=== PATIENT | female | born 1985 | race Caucasian/White ===

== ENCOUNTER 2018-02-11 08:15 | Outpatient (RCR) | payer OTHER, MEDICAID, SELFPAY ==
--- NOTE | 2018-02-01 15:08 | PT.OIE ---
Current Diagnoses Carpal tunnel syndrome, right upper limb (01/31/18) Muscle weakness (generalized) (01/31/18) Past Medical History (Last Reviewed 12/17/17 @ 12:31 by Yolanda Ellis DO) Anxiety (Chronic) Back pain (Chronic) GERD (gastroesophageal reflux disease) (Chronic) PCOS (polycystic ovarian syndrome) (Chronic) Scoliosis (Chronic) Past Surgical History (Last Reviewed 12/17/17 @ 12:31 by Yolanda Ellis DO) History of tonsillectomy Provider Visit Care Team Role Provider Type Yolanda Ellis DO Attending Provider Physician Family Provider Primary Care Provider Specialty: Family Practice Address: [address] [place] [address] Email: [email or web address] Physical Therapy Initial Evaluation PT-OP-A Visit Information Start: 01/31/18 12:47 Freq: Status: Active Protocol: Document 01/31/18 12:49 LRN (Rec: 01/31/18 14:09 LRN [id number]) Out-Patient Physical Therapy Visit Information Visit Information Visit Type Initial Evaluation Visit Note 1 Eval/0 of 23 visits Visit Start Time 12:49 Visit Stop Time 13:38 Total Visit Minutes 49 Visit Number 1 Eval Number of STONE POLISHER Visits 0 Evaluation Information Evaluation Date 01/31/18 PT-OP-B Current Condition Start: 01/31/18 12:47 Freq: Status: Active Protocol: Document 01/31/18 12:49 LRN (Rec: 01/31/18 14:09 LRN [id number]) Current Condition History of Current Condition Onset Date October 28, 2017 Current Complaints Daily, constant ache in R forearm, volar wrist and hand. Limited function History of Current Condition Pt reports slow onset waking up with worsening of R wrist numbness/tingling, sharp shooting pain into the thumb/ hand/wrist/proximal forearm, R arm stiffness and achy soreness since driving for 2 days to [place] and back. 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 She has difficulty with writing, picking up heavy objects, stretching into wrist extension and sometimes with opening out her hand. Prior Treatments and Tests Purchased [id number] short wrist brace. Future Testing and Treatments Planned None Treatment Goals Patient/Caregiver Goals Pt goal is to not get surgery. She would like to be able to continue working and to not have increased pain with waking in the morning. Prior Functional Status Baseline Function- ADL's Independent Baseline Function- Mobility Independent Current Functional Impairments (Reported) Functional Limitations- ADL's Can't open jars/bottle caps, sometimes can't lift heavy objects, Functional Limitations- Work/School Wears brace to work. 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 PT-OP-C Subjective Start: 01/31/18 12:47 Freq: Status: Active Protocol: Document 01/31/18 12:49 LRN (Rec: 01/31/18 14:09 LRN [id number]) Patient Questionnaires Quick Dash- Upper Extremity Quick Dash UE Score 14.09 Quick Dash UE Impairment 1 to 19% Impaired (Score 1-19) OP-PT Pain Assessment Pain Assessment Grid Paper Pain Assessment Grid Completed Yes Location R arm Pain Location Details Forearm, center of wrist, and hand. Intensity 3 Description Aching Description- Other Feels swollen Frequency Constant Home Pain Medication Use Patient Goal Sometimes uses aleve for back pain. PT-OP-H Neuro Start: 01/31/18 12:47 Freq: Status: Active Protocol: Document 01/31/18 12:49 LRN (Rec: 01/31/18 14:09 LRN [id number]) Sensation Evaluation Comments Summary Comments R middle, tip of finger numbness. Deep Tendon Reflex & Clonus Assessment Deep Tendon Reflex Bilateral Biceps, Triceps, Brachioradialis Deep Tendon Reflex 2+ Normal PT-OP-J Posture/Palpation/Skin Start: 01/31/18 12:47 Freq: Status: Active Protocol: Document 01/31/18 12:49 LRN (Rec: 01/31/18 14:09 LRN [id number]) Posture Evaluation Position Standing Evaluation View Posterior Head/C-Spine Posture Neutral Position Forward Head T-Spine Posture Fixed Scoliosis on (L) L-Spine Posture Flexible Scoliosis on (R) Palpation Assessment Location R arm Palpation Location Hand, wrist, forearm Palpation Findings Soft Tissue Tightness PT-OP-K Range of Motion Start: 01/31/18 12:47 Freq: Status: Active Protocol: Document 01/31/18 12:49 LRN (Rec: 01/31/18 14:09 LRN [id number]) Wrist Goniometric Range of Motion Wrist Measured in Degrees Left Flexion Active (degrees) 73 Extension Active (degrees) 75 Extension Passive (degrees) 85 Ulnar Deviation Active (degrees) 32 Radial Deviation Active (degrees) 28 Right Flexion Active (degrees) 53 Extension Active (degrees) 60 Extension Passive (degrees) 65 Ulnar Deviation Active (degrees) 30 Radial Deviation Active (degrees) 26 Finger Goniometric Range of Motion Finger ROM Limitations Comments Finger ROM - WNL bilaterally Thumb Goniometric Range of Motion Thumb ROM Limitations Comments WNL - Bilaterally PT-OP-L Special Tests Start: 01/31/18 12:47 Freq: Status: Active Protocol: Document 01/31/18 12:49 LRN (Rec: 02/01/18 13:17 LRN [id number]) Special Tests Other Special Tests Special Tests Reverse Phalen's: + Right wrist. PT-OP-M Strength Start: 01/31/18 12:47 Freq: Status: Active Protocol: Document 01/31/18 12:49 LRN (Rec: 01/31/18 14:09 [facility] [id number]) Cervical Spine Strength Cervical Spine Manual Muscle Testing Reason Not Measured WFL Wrist Strength Wrist Manual Muscle Testing Left Reason Not Measured WFL Right Comments WNL except pronation is 4/5 Finger/Thumb Strength Finger Manual Muscle Testing Left Thumb Comments Opposition and Claim Clerk strength: Generally 5/5. Right Thumb Adduction 3+ Fair+ Comments Opposition all digits with thumb: 3+/5. Claim Clerk strength is 3+/5. Hand Claim Clerk/Pinch Strength Hand Dominance Hand Dominance Right PT-OP-Q Treatments Start: 01/31/18 12:47 Freq: Status: Active Protocol: Document 01/31/18 12:49 LRN (Rec: 01/31/18 14:09 LRN [id number]) Therapeutic Exercises Sitting Exercises R wrist stretch Sitting Exercise Name Passive extension Side right Self-Care/Home Management Treatment Education Patient Education Home Exercise Program Activities Self-Care/Home Management Activities I/S pt in self care of stretch to wrist extensors followed by use of cold pack. Discussed pt to monitor nighttime positioning. PT-OP-R Modalities Start: 01/31/18 12:47 Freq: Status: Active Protocol: Document 10/08/18 12:49 LRN (Rec: 01/31/18 14:58 LRN [id number]) Ultrasound Therapy Treatment Right Volar Wrist Treatment Duration (minutes) 8 Patient Position Sitting Coupling Medium Ultrasound Gel Applicator Size (cm2) 5 Frequency Setting (mHz) 3 Mode Setting Pulsed Duty Cycle 20% Intensity Setting (w/cm2) 0.8 PT-OP-T Assessment and Plan Start: 01/31/18 12:47 Freq: Status: Active Protocol: Document 01/31/18 12:49 LRN (Rec: 01/31/18 14:09 LRN [id number]) Physical Therapy Assessment Rehab Potential Rehabilitation Potential Good Evaluation Complexity Number of Personal Factors/Comorbidities 1-2 Number of Body Systems Impaired 3 Clinical Presentation at Evaluation Evolving Impairments Impairments Activity Tolerance Functional Activities Pain Posture ROM Soft Tissue Mobility Strength Other Concerns Age Related Concerns Impact to job and family. Barriers to Rehabilitation Pt job is as a caregiver requiring heavy assist. Goals Four Impairment Interrupts sleep. Short Term Goal (STG) Pt will be able to sleep at night without constant ache and onset of numbness/tingling . STG Duration 03/02/2018 Three Impairment Weakness of R wrist/fingers Half-Way Goal (LTG) Improve R wrist/finger strength such that pt will be able to open jars with mild difficulty and manage her symptoms while at work. LTG Duration 04/01/2018 Two Impairment Positive Reverse Phalen's Test Half-Way Goal (LTG) Negative Reverse Phalen's Test LTG Duration 04/01/2018 One Impairment Lacks self care program Insulation And Flooring Assembler Goal (LTG) Pt will be independent in a self care program to manage her pain and symptom onset to avoid surgery. LTG Duration 04/01/2018 Assessment Summary Assessment Pt chose to ice at home. Pt presents with symptoms of carpel tunnel syndrome (CTS) and variance in signs of CTS ( negative Tinel sign, positive reverse Phalen). She has decreased wrist mobility and strength that is somewhat limiting her work ability and pain that is interrupting her sleep at night. The pt comes to therapy with a short wrist support, but would benefit from a wrist support that extend to the forearm. Her job that requires heavy lifting might prolong her recovery if she is not able to manage her pain. Physical Therapy Plan Frequency and Duration Frequency of Treatment 2x/Week Therapeutic Interventions Therapeutic Interventions Home Exercise Program Joint Mobilizations Manual Therapy Neuromuscular Re-education Patient/Caregiver Education Self-Care/Home Management Soft Tissue Mobilization Taping Therapeutic Exercises Modalities Cold Pack/Ice Massage Iontophoresis Ultrasound Next Visit Focus/Plan Next Note Type Treatment Note Next Visit Plan Assess response to Ultrasound, continue if helpful. STM R forearm and nerve glides of R UE. Strengthen other wrist muscles, add neck stretches, check thoracic outlet. Start HEP of wrist strengthening, wrist flexor/neck stretches and end Cryotherapy.
--- NOTE | 2018-02-01 15:10 | PT.OPPOC ---
Current Diagnoses Carpal tunnel syndrome, right upper limb (01/31/18) Muscle weakness (generalized) (01/31/18) Provider Visit Care Team Role Provider Type Yolanda Ellis DO Attending Provider Physician Family Provider Primary Care Provider Specialty: Family Practice Address: [address] [place] [address], [id number] Email: [email or web address] Plan Of Care PT-OP-T Assessment and Plan Start: 01/31/18 12:47 Freq: Status: Active Protocol: Document 01/31/18 12:49 LRN (Rec: 01/31/18 14:09 LRN [id number]) Physical Therapy Assessment Rehab Potential Rehabilitation Potential Good Evaluation Complexity Number of Personal Factors/Comorbidities 1-2 Number of Body Systems Impaired 3 Clinical Presentation at Evaluation Evolving Impairments Impairments Activity Tolerance Functional Activities Pain Posture ROM Soft Tissue Mobility Strength Other Concerns Age Related Concerns Impact to job and family. Barriers to Rehabilitation Pt job is as a caregiver requiring heavy assist. Goals Four Impairment Interrupts sleep. Short Term Goal (STG) Pt will be able to sleep at night without constant ache and onset of numbness/tingling . STG Duration 03/02/2018 Three Impairment Weakness of R wrist/fingers Mcc Goal (LTG) Improve R wrist/finger strength such that pt will be able to open jars with mild difficulty and manage her symptoms while at work. LTG Duration 04/01/2018 Two Impairment Positive Reverse Phalen's Test Mcc Goal (LTG) Negative Reverse Phalen's Test LTG Duration 04/01/2018 One Impairment Lacks self care program Mcc Goal (LTG) Pt will be independent in a self care program to manage her pain and symptom onset to avoid surgery. LTG Duration 04/01/2018 Assessment Summary Assessment Pt chose to ice at home. Pt presents with symptoms of carpel tunnel syndrome (CTS) and variance in signs of CTS ( negative Tinel sign, positive reverse Phalen). She has decreased wrist mobility and strength that is somewhat limiting her work ability and pain that is interrupting her sleep at night. The pt comes to therapy with a short wrist support, but would benefit from a wrist support that extend to the forearm. Her job that requires heavy lifting might prolong her recovery if she is not able to manage her pain. Physical Therapy Plan Frequency and Duration Frequency of Treatment 2x/Week Plan of Care Start Date 01/31/18 Plan of Care End Date 04/01/18 Therapeutic Interventions Therapeutic Interventions Home Exercise Program Joint Mobilizations Manual Therapy Neuromuscular Re-education Patient/Caregiver Education Self-Care/Home Management Soft Tissue Mobilization Taping Therapeutic Exercises Modalities Cold Pack/Ice Massage Iontophoresis Ultrasound Next Visit Focus/Plan Next Note Type Treatment Note Next Visit Plan Assess response to Ultrasound, continue if helpful. STM R forearm and nerve glides of R UE. Strengthen other wrist muscles, add neck stretches, check thoracic outlet. Start HEP of wrist strengthening, wrist flexor/neck stretches and end Cryotherapy. Plan of Care Dates Plan of Care Start Date 01/31/18 Plan of Care End Date 04/01/18 Please Sign and Return: I have reviewed this Plan of Care and certify that the skilled therapy services above are required to meet the patient?s needs. Physician Signature Date Printed Name and Credentials Clinical Instructor Signature Printed Name and Credentials
--- NOTE | 2018-02-11 11:19 | PT.OTN ---
Current Diagnoses Carpal tunnel syndrome, right upper limb (02/11/18) Physical Therapy Treatment Note PT-OP-A Visit Information Start: 01/31/18 12:47 Freq: Status: Active Protocol: Document 01/31/18 12:49 LRN (Rec: 01/31/18 14:09 LRN [id number]) Out-Patient Physical Therapy Visit Information Visit Information Visit Type Initial Evaluation Visit Note 1 Eval/0 of 23 visits Visit Start Time 12:49 Visit Stop Time 13:38 Total Visit Minutes 49 Visit Number 1 Eval Number of CAREER TECHNICAL EDUCATION TEACHER Visits 0 Evaluation Information Evaluation Date 01/31/18 PT-OP-B Current Condition Start: 01/31/18 12:47 Freq: Status: Active Protocol: Document 01/31/18 12:49 LRN (Rec: 01/31/18 14:09 LRN [id number]) Current Condition History of Current Condition Onset Date October 28, 2017 Current Complaints Daily, constant ache in R forearm, volar wrist and hand. Limited function History of Current Condition Pt reports slow onset waking up with worsening of R wrist numbness/tingling, sharp shooting pain into the thumb/ hand/wrist/proximal forearm, R arm stiffness and achy soreness since driving for 2 days to [place] and [facility]. 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 She has difficulty with writing, picking up heavy objects, stretching into wrist extension and sometimes with opening out her hand. Prior Treatments and Tests Purchased [id number] short wrist brace. Future Testing and Treatments Planned None Treatment Goals Patient/Caregiver Goals Pt goal is to not get surgery. She would like to be able to continue working and to not have increased pain with waking in the morning. Prior Functional Status Baseline Function- ADL's Independent Baseline Function- Mobility Independent Current Functional Impairments (Reported) Functional Limitations- ADL's Can't open jars/bottle caps, sometimes can't lift heavy objects, Functional Limitations- Work/School Wears brace to work. 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 PT-OP-C Subjective Start: 01/31/18 12:47 Freq: Status: Active Protocol: Document 02/11/18 11:05 SA (Rec: 02/11/18 11:19 SA [id number]) OP-PT Subjective Patient Comments Patient Comments Pain in wrist has decreased but still feeling numb and heavy, esecially when first getting up from bed. OP-PT Pain Assessment Pain Assessment Grid Paper Pain Assessment Grid Completed Yes Location R arm Pain Location Details Forearm, center of wrist, and hand. Intensity 2 Frequency Intermittent Pain Duration feels swollen/heavy PT-OP-H Neuro Start: 01/31/18 12:47 Freq: Status: Active Protocol: Document 01/31/18 12:49 LRN (Rec: 01/31/18 14:09 LRN [id number]) Sensation Evaluation Comments Summary Comments R middle, tip of finger numbness. Deep Tendon Reflex & Clonus Assessment Deep Tendon Reflex Bilateral Biceps, Triceps, Brachioradialis Deep Tendon Reflex 2+ Normal PT-OP-J Posture/Palpation/Skin Start: 01/31/18 12:47 Freq: Status: Active Protocol: Document 01/31/18 12:49 LRN (Rec: 01/31/18 14:09 LRN [id number]) Posture Evaluation Position Standing Evaluation View Posterior Head/C-Spine Posture Neutral Position Forward Head T-Spine Posture Fixed Scoliosis on (L) L-Spine Posture Flexible Scoliosis on (R) Palpation Assessment Location R arm Palpation Location Hand, wrist, forearm Palpation Findings Soft Tissue Tightness PT-OP-K Range of Motion Start: 01/31/18 12:47 Freq: Status: Active Protocol: Document 01/31/18 12:49 LRN (Rec: 01/31/18 14:09 LRN [id number]) Wrist Goniometric Range of Motion Wrist Measured in Degrees Left Flexion Active (degrees) 73 Extension Active (degrees) 75 Extension Passive (degrees) 85 Ulnar Deviation Active (degrees) 32 Radial Deviation Active (degrees) 28 Right Flexion Active (degrees) 53 Extension Active (degrees) 60 Extension Passive (degrees) 65 Ulnar Deviation Active (degrees) 30 Radial Deviation Active (degrees) 26 Finger Goniometric Range of Motion Finger ROM Limitations Comments Finger ROM - WNL bilaterally Thumb Goniometric Range of Motion Thumb ROM Limitations Comments WNL - Bilaterally PT-OP-L Special Tests Start: 01/31/18 12:47 Freq: Status: Active Protocol: Document 01/31/18 12:49 LRN (Rec: 02/01/18 13:17 LRN [id number]) Special Tests Other Special Tests Special Tests Reverse Phalen's: + Right wrist. PT-OP-M Strength Start: 01/31/18 12:47 Freq: Status: Active Protocol: Document 01/31/18 12:49 LRN (Rec: 01/31/18 14:09 LRN [id number]) Cervical Spine Strength Cervical Spine Manual Muscle Testing Reason Not Measured WFL Wrist Strength Wrist Manual Muscle Testing Left Reason Not Measured WFL Right Comments WNL except pronation is 4/5 Finger/Thumb Strength Finger Manual Muscle Testing Left Thumb Comments Opposition and Strategic Planning Specialist strength: Generally 5/5. Right Thumb Adduction 3+ Fair+ Comments Opposition all digits with thumb: 3+/5. Strategic Planning Specialist strength is 3+/5. Hand Strategic Planning Specialist/Pinch Strength Hand Dominance Hand Dominance Right PT-OP-Q Treatments Start: 01/31/18 12:47 Freq: Status: Active Protocol: Document 02/11/18 11:05 SA (Rec: 02/11/18 11:19 SA [id number]) Therapeutic Exercises Sitting Exercises R wrist stretch Sitting Exercise Name Passive extension Side right Comments seated upper trap stretching 30 sec hold x 3 and seated cervical retraction PT-OP-R Modalities Start: 01/31/18 12:47 Freq: Status: Active Protocol: Document 02/11/18 11:05 SA (Rec: 02/11/18 11:19 SA [email or web address]) Hot Pack/Cold Pack Treatment Cold Pack Location Right wrist Patient Position Sitting Treatment Duration (minutes) 10 Patient Tolerance Good PT-OP-T Assessment and Plan Start: 01/31/18 12:47 Freq: Status: Active Protocol: Document 02/11/18 11:05 SA (Rec: 02/11/18 11:19 SA [id number]) Physical Therapy Assessment Assessment Summary Assessment Pt educated on seated posture and body mechanics when working with lifting pateints at her work to minimize symptoms. Pt admits to lifting too much and being too busy to get help. Encouraged to continue icing at home 2-3x daily and adding UE stretching to HEP. Physical Therapy Plan Frequency and Duration Frequency of Treatment 2x/Week
--- NOTE | 2018-03-24 16:16 | PT.OTN ---
Current Diagnoses Carpal tunnel syndrome, right upper limb (02/11/18) Physical Therapy Treatment Note PT-OP-A Visit Information Start: 01/31/18 12:47 Freq: Status: Active Protocol: Document 03/24/18 16:15 EA (Rec: 03/24/18 16:16 EA [id number]) Out-Patient Physical Therapy Visit Information Visit Information Visit Type Other Visit Note No show today. No answering machine when called. Patient I believe needs to discharge now due to multiple no shows. PT-OP-B Current Condition Start: 01/31/18 12:47 Freq: Status: Active Protocol: Document 01/31/18 12:49 LRN (Rec: 01/31/18 14:09 LRN [id number]) Current Condition History of Current Condition Onset Date October 28, 2017 Current Complaints Daily, constant ache in R forearm, volar wrist and hand. Limited function History of Current Condition Pt reports slow onset waking up with worsening of R wrist numbness/tingling, sharp shooting pain into the thumb/ hand/wrist/proximal forearm, R arm stiffness and achy soreness since driving for 2 days to [place] and [facility]. 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 She has difficulty with writing, picking up heavy objects, stretching into wrist extension and sometimes with opening out her hand. Prior Treatments and Tests Purchased [id number] short wrist brace. Future Testing and Treatments Planned None Treatment Goals Patient/Caregiver Goals Pt goal is to not get surgery. She would like to be able to continue working and to not have increased pain with waking in the morning. Prior Functional Status Baseline Function- ADL's Independent Baseline Function- Mobility Independent Current Functional Impairments (Reported) Functional Limitations- ADL's Can't open jars/bottle caps, sometimes can't lift heavy objects, Functional Limitations- Work/School Wears brace to work. 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 PT-OP-C Subjective Start: 01/31/18 12:47 Freq: Status: Active Protocol: Document 02/11/18 11:05 SA (Rec: 02/11/18 11:19 SA [email or web address]) OP-PT Subjective Patient Comments Patient Comments Pain in wrist has decreased but still feeling numb and heavy, esecially when first getting up from bed. OP-PT Pain Assessment Pain Assessment Grid Paper Pain Assessment Grid Completed Yes Location R arm Pain Location Details Forearm, center of wrist, and hand. Intensity 2 Frequency Intermittent Pain Duration feels swollen/heavy PT-OP-H Neuro Start: 01/31/18 12:47 Freq: Status: Active Protocol: Document 01/31/18 12:49 LRN (Rec: 01/31/18 14:09 LRN [id number]) Sensation Evaluation Comments Summary Comments R middle, tip of finger numbness. Deep Tendon Reflex & Clonus Assessment Deep Tendon Reflex Bilateral Biceps, Triceps, Brachioradialis Deep Tendon Reflex 2+ Normal PT-OP-J Posture/Palpation/Skin Start: 01/31/18 12:47 Freq: Status: Active Protocol: Document 01/31/18 12:49 LRN (Rec: 01/31/18 14:09 LRN [id number]) Posture Evaluation Position Standing Evaluation View Posterior Head/C-Spine Posture Neutral Position Forward Head T-Spine Posture Fixed Scoliosis on (L) L-Spine Posture Flexible Scoliosis on (R) Palpation Assessment Location R arm Palpation Location Hand, wrist, forearm Palpation Findings Soft Tissue Tightness PT-OP-K Range of Motion Start: 01/31/18 12:47 Freq: Status: Active Protocol: Document 01/31/18 12:49 LRN (Rec: 01/31/18 14:09 LRN [id number]) Wrist Goniometric Range of Motion Wrist Measured in Degrees Left Flexion Active (degrees) 73 Extension Active (degrees) 75 Extension Passive (degrees) 85 Ulnar Deviation Active (degrees) 32 Radial Deviation Active (degrees) 28 Right Flexion Active (degrees) 53 Extension Active (degrees) 60 Extension Passive (degrees) 65 Ulnar Deviation Active (degrees) 30 Radial Deviation Active (degrees) 26 Finger Goniometric Range of Motion Finger ROM Limitations Comments Finger ROM - WNL bilaterally Thumb Goniometric Range of Motion Thumb ROM Limitations Comments WNL - Bilaterally PT-OP-L Special Tests Start: 01/31/18 12:47 Freq: Status: Active Protocol: Document 01/31/18 12:49 LRN (Rec: 02/01/18 13:17 LRN [id number]) Special Tests Other Special Tests Special Tests Reverse Phalen's: + Right wrist. PT-OP-M Strength Start: 01/31/18 12:47 Freq: Status: Active Protocol: Document 01/31/18 12:49 LRN (Rec: 01/31/18 14:09 LRN [id number]) Cervical Spine Strength Cervical Spine Manual Muscle Testing Reason Not Measured WFL Wrist Strength Wrist Manual Muscle Testing Left Reason Not Measured WFL Right Comments WNL except pronation is 4/5 Finger/Thumb Strength Finger Manual Muscle Testing Left Thumb Comments Opposition and Tractor Driver strength: Generally 5/5. Right Thumb Adduction 3+ Fair+ Comments Opposition all digits with thumb: 3+/5. Tractor Driver strength is 3+/5. Hand Tractor Driver/Pinch Strength Hand Dominance Hand Dominance Right PT-OP-Q Treatments Start: 01/31/18 12:47 Freq: Status: Active Protocol: Document 02/11/18 11:05 SA (Rec: 02/11/18 11:19 SA [id number]) Therapeutic Exercises Sitting Exercises R wrist stretch Sitting Exercise Name Passive extension Side right Comments seated upper trap stretching 30 sec hold x 3 and seated cervical retraction PT-OP-R Modalities Start: 01/31/18 12:47 Freq: Status: Active Protocol: Document 02/11/18 11:05 SA (Rec: 02/11/18 11:19 SA [email or web address]) Hot Pack/Cold Pack Treatment Cold Pack Location Right wrist Patient Position Sitting Treatment Duration (minutes) 10 Patient Tolerance Good PT-OP-T Assessment and Plan Start: 01/31/18 12:47 Freq: Status: Active Protocol: Document 02/11/18 11:05 SA (Rec: 02/11/18 11:19 SA [email or web address]) Physical Therapy Assessment Assessment Summary Assessment Pt educated on seated posture and body mechanics when working with lifting pateints at her work to minimize symptoms. Pt admits to lifting too much and being too busy to get help. Encouraged to continue icing at home 2-3x daily and adding UE stretching to HEP. Physical Therapy Plan Frequency and Duration Frequency of Treatment 2x/Week
--- NOTE | 2018-05-27 15:41 | PT.OPDS ---
Current Diagnoses Carpal tunnel syndrome, right upper limb (02/11/18) Provider Visit Care Team Role Provider Type Yolanda Ellis DO Attending Provider Physician Family Provider Primary Care Provider Specialty: Family Practice Address: [address] [place] [address], [id number] Email: [email or web address] Visit Number Visit Number 1 Eval Discharge Summary PT-OP-B Current Condition Start: 01/31/18 12:47 Freq: Status: Active Protocol: Document 01/31/18 12:49 LRN (Rec: 01/31/18 14:09 LRN [id number]) Current Condition History of Current Condition Onset Date October 28, 2017 Current Complaints Daily, constant ache in R forearm, volar wrist and hand. Limited function History of Current Condition Pt reports slow onset waking up with worsening of R wrist numbness/tingling, sharp shooting pain into the thumb/ hand/wrist/proximal forearm, R arm stiffness and achy soreness since driving for 2 days to [place] [facility]. 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 She has difficulty with writing, picking up heavy objects, stretching into wrist extension and sometimes with opening out her hand. Prior Treatments and Tests Purchased [id number] short wrist brace. Future Testing and Treatments Planned None Treatment Goals Patient/Caregiver Goals Pt goal is to not get surgery. She would like to be able to continue working and to not have increased pain with waking in the morning. Prior Functional Status Baseline Function- ADL's Independent Baseline Function- Mobility Independent Current Functional Impairments (Reported) Functional Limitations- ADL's Can't open jars/bottle caps, sometimes can't lift heavy objects, Functional Limitations- Work/School Wears brace to work. 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 PT-OP-C Subjective Start: 01/31/18 12:47 Freq: Status: Active Protocol: Document 02/11/18 11:05 SA (Rec: 02/11/18 11:19 SA [email or web address]) OP-PT Subjective Patient Comments Patient Comments Pain in wrist has decreased but still feeling numb and heavy, esecially when first getting up from bed. OP-PT Pain Assessment Pain Assessment Grid Paper Pain Assessment Grid Completed Yes Location R arm Pain Location Details Forearm, center of wrist, and hand. Intensity 2 Frequency Intermittent Pain Duration feels swollen/heavy PT-OP-H Neuro Start: 01/31/18 12:47 Freq: Status: Active Protocol: Document 01/31/18 12:49 LRN (Rec: 01/31/18 14:09 LRN [id number]) Sensation Evaluation Comments Summary Comments R middle, tip of finger numbness. Deep Tendon Reflex & Clonus Assessment Deep Tendon Reflex Bilateral Biceps, Triceps, Brachioradialis Deep Tendon Reflex 2+ Normal PT-OP-J Posture/Palpation/Skin Start: 01/31/18 12:47 Freq: Status: Active Protocol: Document 01/31/18 12:49 LRN (Rec: 01/31/18 14:09 LRN [id number]) Posture Evaluation Position Standing Evaluation View Posterior Head/C-Spine Posture Neutral Position Forward Head T-Spine Posture Fixed Scoliosis on (L) L-Spine Posture Flexible Scoliosis on (R) Palpation Assessment Location R arm Palpation Location Hand, wrist, forearm Palpation Findings Soft Tissue Tightness PT-OP-K Range of Motion Start: 01/31/18 12:47 Freq: Status: Active Protocol: Document 01/31/18 12:49 LRN (Rec: 01/31/18 14:09 LRN [id number]) Wrist Goniometric Range of Motion Wrist Measured in Degrees Left Flexion Active (degrees) 73 Extension Active (degrees) 75 Extension Passive (degrees) 85 Ulnar Deviation Active (degrees) 32 Radial Deviation Active (degrees) 28 Right Flexion Active (degrees) 53 Extension Active (degrees) 60 Extension Passive (degrees) 65 Ulnar Deviation Active (degrees) 30 Radial Deviation Active (degrees) 26 Finger Goniometric Range of Motion Finger ROM Limitations Comments Finger ROM - WNL bilaterally Thumb Goniometric Range of Motion Thumb ROM Limitations Comments WNL - Bilaterally PT-OP-L Special Tests Start: 01/31/18 12:47 Freq: Status: Active Protocol: Document 01/31/18 12:49 LRN (Rec: 02/01/18 13:17 LRN [id number]) Special Tests Other Special Tests Special Tests Reverse Phalen's: + Right wrist. PT-OP-M Strength Start: 10/08/18 12:47 Freq: Status: Active Protocol: Document 01/31/18 12:49 LRN (Rec: 01/31/18 14:09 LRN [id number]) Cervical Spine Strength Cervical Spine Manual Muscle Testing Reason Not Measured WFL Wrist Strength Wrist Manual Muscle Testing Left Reason Not Measured WFL Right Comments WNL except pronation is 4/5 Finger/Thumb Strength Finger Manual Muscle Testing Left Thumb Comments Opposition and Coffee Maker strength: Generally 5/5. Right Thumb Adduction 3+ Fair+ Comments Opposition all digits with thumb: 3+/5. Coffee Maker strength is 3+/5. Hand Coffee Maker/Pinch Strength Hand Dominance Hand Dominance Right PT-OP-T Assessment and Plan Start: 01/31/18 12:47 Freq: Status: Active Protocol: Document 05/27/18 15:30 LRN (Rec: 05/27/18 15:41 LRN [id number]) Physical Therapy Assessment Goals Four Impairment Interrupts sleep. Short Term Goal (STG) Pt will be able to sleep at night without constant ache and onset of numbness/tingling . STG Duration 03/02/2018 Three Impairment Weakness of R wrist/fingers Supervisor Roving Goal (LTG) Improve R wrist/finger strength such that pt will be able to open jars with mild difficulty and manage her symptoms while at work. LTG Duration 04/01/2018 Two Impairment Positive Reverse Phalen's Test Intermediate Goal (LTG) Negative Reverse Phalen's Test LTG Duration 04/01/2018 One Impairment Lacks self care program Intermediate Goal (LTG) Pt will be independent in a self care program to manage her pain and symptom onset to avoid surgery. LTG Duration 04/01/2018 Assessment Summary Assessment Pt is being discharged from therapy for lack of attendance . The pt was seen for 4 physical therapy visits with the last visit on 02/11/18. Pt was not available for final assessment. Physical Therapy Plan Discharge Physical Therapy Discharge Reasons No Longer Attending PT
--- NOTE | 2018-05-27 15:46 | PT.OPDS ---
Current Diagnoses Carpal tunnel syndrome, right upper limb (02/11/18) Provider Visit Care Team Role Provider Type Yolanda Ellis DO Attending Provider Physician Family Provider Primary Care Provider Specialty: Family Practice Address: [address] [place] [address], [id number] Email: [email or web address] Visit Number Visit Number 1 Eval Discharge Summary PT-OP-B Current Condition Start: 01/31/18 12:47 Freq: Status: Active Protocol: Document 01/31/18 12:49 LRN (Rec: 01/31/18 14:09 LRN [id number]) Current Condition History of Current Condition Onset Date October 28, 2017 Current Complaints Daily, constant ache in R forearm, volar wrist and hand. Limited function History of Current Condition Pt reports slow onset waking up with worsening of R wrist numbness/tingling, sharp shooting pain into the thumb/ hand/wrist/proximal forearm, R arm stiffness and achy soreness since driving for 2 days to [place] and [facility]. 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 She has difficulty with writing, picking up heavy objects, stretching into wrist extension and sometimes with opening out her hand. Prior Treatments and Tests Purchased [id number] short wrist brace. Future Testing and Treatments Planned None Treatment Goals Patient/Caregiver Goals Pt goal is to not get surgery. She would like to be able to continue working and to not have increased pain with waking in the morning. Prior Functional Status Baseline Function- ADL's Independent Baseline Function- Mobility Independent Current Functional Impairments (Reported) Functional Limitations- ADL's Can't open jars/bottle caps, sometimes can't lift heavy objects, Functional Limitations- Work/School Wears brace to work. 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 PT-OP-C Subjective Start: 01/31/18 12:47 Freq: Status: Active Protocol: Document 02/11/18 11:05 SA (Rec: 02/11/18 11:19 SA [id number]) OP-PT Subjective Patient Comments Patient Comments Pain in wrist has decreased but still feeling numb and heavy, esecially when first getting up from bed. OP-PT Pain Assessment Pain Assessment Grid Paper Pain Assessment Grid Completed Yes Location R arm Pain Location Details Forearm, center of wrist, and hand. Intensity 2 Frequency Intermittent Pain Duration feels swollen/heavy PT-OP-H Neuro Start: 01/31/18 12:47 Freq: Status: Active Protocol: Document 01/31/18 12:49 LRN (Rec: 01/31/18 14:09 LRN [id number]) Sensation Evaluation Comments Summary Comments R middle, tip of finger numbness. Deep Tendon Reflex & Clonus Assessment Deep Tendon Reflex Bilateral Biceps, Triceps, Brachioradialis Deep Tendon Reflex 2+ Normal PT-OP-J Posture/Palpation/Skin Start: 01/31/18 12:47 Freq: Status: Active Protocol: Document 01/31/18 12:49 LRN (Rec: 01/31/18 14:09 LRN [id number]) Posture Evaluation Position Standing Evaluation View Posterior Head/C-Spine Posture Neutral Position Forward Head T-Spine Posture Fixed Scoliosis on (L) L-Spine Posture Flexible Scoliosis on (R) Palpation Assessment Location R arm Palpation Location Hand, wrist, forearm Palpation Findings Soft Tissue Tightness PT-OP-K Range of Motion Start: 01/31/18 12:47 Freq: Status: Active Protocol: Document 01/31/18 12:49 LRN (Rec: 01/31/18 14:09 LRN [id number]) Wrist Goniometric Range of Motion Wrist Measured in Degrees Left Flexion Active (degrees) 73 Extension Active (degrees) 75 Extension Passive (degrees) 85 Ulnar Deviation Active (degrees) 32 Radial Deviation Active (degrees) 28 Right Flexion Active (degrees) 53 Extension Active (degrees) 60 Extension Passive (degrees) 65 Ulnar Deviation Active (degrees) 30 Radial Deviation Active (degrees) 26 Finger Goniometric Range of Motion Finger ROM Limitations Comments Finger ROM - WNL bilaterally Thumb Goniometric Range of Motion Thumb ROM Limitations Comments WNL - Bilaterally PT-OP-L Special Tests Start: 01/31/18 12:47 Freq: Status: Active Protocol: Document 01/31/18 12:49 LRN (Rec: 02/01/18 13:17 LRN [id number]) Special Tests Other Special Tests Special Tests Reverse Phalen's: + Right wrist. PT-OP-M Strength Start: 10/08/18 12:47 Freq: Status: Active Protocol: Document 01/31/18 12:49 LRN (Rec: 01/31/18 14:09 LRN [id number]) Cervical Spine Strength Cervical Spine Manual Muscle Testing Reason Not Measured WFL Wrist Strength Wrist Manual Muscle Testing Left Reason Not Measured WFL Right Comments WNL except pronation is 4/5 Finger/Thumb Strength Finger Manual Muscle Testing Left Thumb Comments Opposition and Account Contact Associate strength: Generally 5/5. Right Thumb Adduction 3+ Fair+ Comments Opposition all digits with thumb: 3+/5. Account Contact Associate strength is 3+/5. Hand Account Contact Associate/Pinch Strength Hand Dominance Hand Dominance Right PT-OP-T Assessment and Plan Start: 01/31/18 12:47 Freq: Status: Active Protocol: Document 05/27/18 15:30 LRN (Rec: 05/27/18 15:41 LRN [id number]) Physical Therapy Assessment Goals Four Impairment Interrupts sleep. Short Term Goal (STG) Pt will be able to sleep at night without constant ache and onset of numbness/tingling . STG Duration 03/02/2018 Three Impairment Weakness of R wrist/fingers Optical Manufacturing Technician Goal (LTG) Improve R wrist/finger strength such that pt will be able to open jars with mild difficulty and manage her symptoms while at work. LTG Duration 04/01/2018 Two Impairment Positive Reverse Phalen's Test Nursing Home Goal (LTG) Negative Reverse Phalen's Test LTG Duration 04/01/2018 One Impairment Lacks self care program Nursing Home Goal (LTG) Pt will be independent in a self care program to manage her pain and symptom onset to avoid surgery. LTG Duration 04/01/2018 Assessment Summary Assessment Pt is being discharged from therapy for lack of attendance . The pt was seen for her initial evaluation and 1 physical therapy visit with on 02/11/18. Pt was not available for final assessment . Physical Therapy Plan Discharge Physical Therapy Discharge Reasons No Longer Attending PT Discharge Comments The pt will need a new referral if physical therapy is needed. Thank you for your referral.
== END 2018-06-08 12:48 ==
LOC: PHYS 08:15
PROVIDERS: Family Provider Family Medicine; PCP Family Medicine; Visit Provider Family Medicine
DX: G56.01 Carpal tunnel syndrome, right upper limb (principal)
CPT/HCPCS: 97035; 97110; 97140; 97162

== ENCOUNTER 2019-01-02 23:09 | Emergency (ER) | payer SELFPAY ==
[2019-01-02 23:15] VITALS: BP 134/84; PULSE 104; RESP 22; TEMP 36.1; O2SAT 99
--- NOTE | 2019-01-02 23:17 | DI.RAD.S_ITS ---
PROCEDURE: XR TOE LT MIN 2V INDICATIONS: injury TECHNIQUE: 3 views of the left fifth toe(s) acquired. COMPARISON: None. FINDINGS: Bones: Minimally displaced fracture of the left fifth proximal phalange. Soft tissues: No suspicious soft tissue densities. IMPRESSION: Fifth proximal phalange fracture. Dictated by: Catia Basilio MD, PhD on 01/03/2019 at 8:57 Approved by: Catia Basilio MD, PhD on 01/03/2019 at 8:58
--- NOTE | 2019-01-02 23:22 | PC.NURSE ---
Left 5th toe contusion with ecchymosis when she accidentally kicked a door this morning at 5am.
--- NOTE | 2019-01-03 01:25 | ED.LOWEXIN ---
HPI - Extremity Injury (Lower) General Chief Complaint: Extremity Injury, Lower Stated Complaint: busted up lt pinky toe really bad/can hardly walk Time Seen by Provider: 01/03/19 01:24 Source: patient Mode of arrival: ambulatory Limitations: no limitations History of Present Illness HPI Narrative: This is a 33-year-old female who states that she was running to the bathroom when she caught her toe on the change into the bathroom. She is not sure if she pulled it externally or pushed it internally but had immediate pain and has had bruising and swelling. Patient states there was a little bit of bleeding initially but she is not sure where it came from. She denies any other injuries. She has pain particularly in the 5th toe a little bit in the 4th and on the underside of the foot. Patient denies any other past medical history. Denies any prior surgeries. She denies any allergies to medications. She did take some Aleve which was somewhat helpful. Related Data Previous Rx's Medication Instructions Recorded ibuprofen 800 mg PO Q6HP PRN #90 tab 04/26/16 medroxyprogesterone 10 mg PO SEE INSTRUCTIONS #14 tab 04/27/16 clomiphene citrate 50 mg PO SEE INSTRUCTIONS #5 tab 06/17/16 vit-iron fum-folic ac 1 cap PO QDAY #30 cap 03/02/17 [Mynatal] Allergies Allergy/AdvReac Type Severity Reaction Status Date / Time hydrocodone [HYDROCODONE] Allergy Mild NAUSEA Verified 05/25/18 09:37 Review of Systems Review of Systems ROS Unobtainable: All systems reviewed & are unremarkable except as noted in HPI and below PFSH Medical History Anxiety (Chronic) Back pain (Chronic) GERD (gastroesophageal reflux disease) (Chronic) PCOS (polycystic ovarian syndrome) (Chronic) Scoliosis (Chronic) Surgical History History of tonsillectomy Family History (Updated 12/07/17 @ 15:51 by Princess Williamson LPN) Father Diabetes mellitus Mother Diabetes mellitus Social History Smoking Status: Current every day smoker Family History (Updated 12/07/17 @ 15:51 by Princess Williamson LPN) Father Diabetes mellitus Mother Diabetes mellitus Social History Smoking Status: Current every day smoker Exam Narrative Exam Narrative: GENERAL: Alert and oriented x three, obese, well-appearing female in mild distress. HEENT: Head normocephalic, atraumatic, EOMI, pupils reactive, face symmetric, moist mucous membranes NECK: Supple, full range of motion EXTREMITIES: Normal range of motion, no clubbing or edema, X over the 5th toe on the left foot. Patient has swelling as well as bruising particularly over the lateral and medial sides and in the crease of the toe. Patient is quite tender to touch. There is no clear laceration to skin. The nail does appear tacked. Patient has sensation to touch. She has cap refill less than 2 seconds in all 5 toes. She does have some mild pain in the 4th toe but not a significant. Neurovascularly intact NEUROLOGICAL: Cranial nerves II through XII grossly intact. Moving all extremities. SKIN: Warm, dry, no petechiae, no rashes or lesions noted elsewhere. Initial Vital Signs Initial Vital Signs: Vital Signs Temperature 97.0 F L 01/02/19 23:15 Pulse Rate 104 H 01/02/19 23:15 Respiratory Rate 22 01/02/19 23:15 Blood Pressure 134/84 01/02/19 23:15 Pulse Oximetry 99 01/02/19 23:15 Course Orders Ordered: ED Orders 01/02/19 23:17 XR toe LT min 2V Stat Vital Signs Vital signs: Vital Signs - 8 hr 01/02/19 23:15 01/03/19 02:10 Temperature 97.0 F L Pulse Rate 104 H 74 Respiratory Rate 22 15 Blood Pressure 134/84 132/75 Pulse Oximetry 99 98 MDM - Extremity Injury (Lower) Imaging Data foot xray left: My impression: no fx noted, no FB. MDM Narrative Medical decision making narrative: No clear fracture noted. We did discuss that there is small area that was questionable. Patient was placed in ortho shoe. Plan for NSAIDs alternating with Tylenol. Patient may use ice packs as needed to the affected area. She is given a work note for several days and reasons to return emergently. Discharge Plan Departure Patient Disposition: Home Clinical Impression: Contusion of toe of left foot Qualifiers: Encounter type: initial encounter Toe: lesser toe Damage to nail status: without damage Qualified Code(s): S90.122A - Contusion of left lesser toe(s) without damage to nail, initial encounter Discharge Date/Time: 01/03/19 02:05 Instructions: DI for Toe Sprain Activity Restrictions/Additional Instructions: Follow-up with primary care in the next 7-10 days for recheck and repeat imaging if your symptoms are not improving for evaluation for possible fracture Wear hard shoe or ortho shoe until her symptoms have improved. Continue with Aleve twice daily, you may also take Tylenol up to a 1000 mg every 8 hours as needed for pain. Elevated affected body part to decrease swelling. OK to use ice pack on the affected body part. Use for 15-20 minutes each time, for 5-6x per day. If you develop worsening pain, numbness, tingling, discoloration of the affected body part, either see your doctor for an urgent re-assessment, or return to the Emergency Department. Return to the Emergency Department for any new or worsening symptoms. Prescriptions: No Action ibuprofen 800 MG tablet 800 mg PO Q6HP PRNQty: 90 RF: 0 medroxyprogesterone 10 MG tablet 10 mg PO SEE INSTRUCTIONS Qty: 14 RF: 2 clomiphene citrate 50 MG tablet 50 mg PO SEE INSTRUCTIONS Qty: 5 RF: 1 vit-iron fum-folic ac [Mynatal] 1 EACH capsule 1 cap PO QDAY Qty: 30 RF: 3 Stand Alone Forms: Work Release Note
[2019-01-03 02:10] VITALS: BP 132/75; PULSE 74; RESP 15; O2SAT 98
== END 2019-01-03 02:05 | disposition home or self-care (01) ==
PROVIDERS: Emergency Provider Emergency Medicine
DX: S90.122A Contusion of left lesser toe(s) without damage to nail, initial encounter (principal)
CPT/HCPCS: 29550; 73660; 99283

== ENCOUNTER → 2019-06-15 07:08 | Outpatient (CLI) | payer OTHER, SELFPAY ==
[2019-06-15 08:39] LABS: Add Manual Diff / Slide Review NO; Basophils Absolute Auto 0 /uL (0-100); Basophils Percent Auto 0.6 % (0-2); Eosinophils Absolute Auto 200 /uL (0-450); Eosinophils Percent Auto 2.7 % (2-4); Hematocrit 42.4 % (36-46); Hemoglobin 15.1 g/dL (12.0-16.0); Lymphocytes Absolute Auto 1800 /uL (1100-4500); Lymphocytes Percent Auto 22.4 % (25-40); Mean Corpuscular HGB Conc 35.7 % (30-36); Mean Corpuscular Hemoglobin 31.1 PG (26-34); Mean Corpuscular Volume 87.2 fL (80-100); Monocytes Absolute Auto 500 /uL (0-900); Monocytes Percent Auto 6.3 % (3-14); Neutrophils Absolute Auto 5500 /uL (1500-7000); Platelet Count 310 X10^3/uL (150-400); Red Blood Cell Count 4.87 X10^6/uL (4.0-5.2)
[2019-06-15 09:02] LABS: Hemoglobin A1C% w Est Avg Glu 5.5 % (4.0-6.0)
[2019-06-15 09:21] LABS: Thyroid Stimulating Hormone 1.95 uIU/mL (0.47-4.68)
== END ==
LOC: LAB 07:09
PROVIDERS: PCP Family Medicine; Referring Provider Family Medicine; Visit Provider Family Medicine
DX: E28.2 Polycystic ovarian syndrome (principal); N91.2 Amenorrhea, unspecified
CPT/HCPCS: 36415; 83036; 84443; 85025

== ENCOUNTER → 2019-10-05 12:35 | Outpatient (CLI) | payer OTHER, SELFPAY ==
--- NOTE | 2019-10-05 12:37 | DI.US.S_ITS ---
PROCEDURE: US PELVIC COMPLETE INDICATIONS: MENOMETRORRHAGIA TECHNIQUE: Real-time scanning was performed of the pelvic organs, with image documentation. Additional endovaginal scanning was necessary due to incomplete visualization of the adnexal and endometrial structures by transabdominal scanning. COMPARISON: [facility], , PELVIC COMPLETE, 01/07/2016, 14:26. FINDINGS: Transabdominal scanning: Limited scanning through the kidneys shows no hydronephrosis. No pathologic free abdominal or pelvic fluid. Endovaginal scanning: Uterus: Uterus is normal in size at 10.1 x 4.4 x 6.2 cm. The endometrium measures 13 mm in combined thickness. Ovaries: Right ovary measures 3.3 x 2.9 x 2.2 cm. left ovary measures 3.2 x 2.5 x 2.9 cm. IMPRESSION: Negative examination as above Dictated by: Vaibhav Molina M.D. on 10/05/2019 at 13:55 Approved by: Vaibhav Molina M.D. on 10/05/2019 at 13:57
== END ==
LOC: US 12:36
PROVIDERS: PCP Family Medicine; Referring Provider Specialist; Visit Provider Specialist
DX: N92.1 Excessive and frequent menstruation with irregular cycle (principal)
CPT/HCPCS: 76830; 76856

== ENCOUNTER 2020-12-27 17:06 | Emergency (ER) | payer OTHER, SELFPAY ==
[2020-12-27 17:15] VITALS: BP 165/103; PULSE 94; RESP 18; TEMP 36.5; O2SAT 96; BMI 42.3
--- NOTE | 2020-12-27 17:23 | DI.CT.S_ITS ---
PROCEDURE: CT KIDNEY URETER BLADDER (KUB) INDICATIONS: L flank pain TECHNIQUE: Axial sections were acquired from the lung bases to the pubic symphysis. Coronal and sagittal reformats were performed. For radiation dose reduction, the following was used: automated exposure control, adjustment of mA and/or kV according to patient size. COMPARISON: None. FINDINGS: Image quality: Excellent. Lung bases: Unremarkable. Heart: No significant findings. URINARY: Right Kidney: The right kidney is slightly atrophic at 9.2 cm in length. Right Ureter: No hydroureter. Left Kidney: A 6 mm stone is present at the ureteropelvic junction causing mild left lower pole hydronephrosis. Subtle haziness in the parapelvic and lower pole perinephric fat. Left Ureter: No other ureteral stones and no hydroureter. Bladder: Normal wall thickness. No stones. ABDOMEN: Liver: Unremarkable. Gallbladder: Normal. Biliary ducts: Nondilated. Pancreas: Normal. Spleen: Normal size. Adrenal Glands: No nodules. Stomach and Bowel: Stomach, small bowel loops, and colon are unremarkable. Normal appendix. Peritoneum: No abnormal intraperitoneal fluid. No free air. Ventral Wall: Tiny fat containing umbilical hernia. Abdominal Nodes: No enlarged retroperitoneal or mesenteric lymph nodes. Vessels: Aorta and inferior vena cava are normal in size. PELVIS: Pelvic Organs: Uterus and ovaries are normal. Pelvic Nodes: Unremarkable. Miscellaneous: No inguinal hernias are seen. Bones: Moderate thoracolumbar scoliosis.. IMPRESSION: 1. There is an obstructing 6 mm left ureteropelvic junction stone. 2. Mild right renal atrophy may be secondary to remote infection versus congenital. Dictated by: Brisa Dias M.D. on 12/27/2020 at 19:23 Approved by: Brisa Dias M.D. on 12/27/2020 at 19:30
[2020-12-27 19:19] LABS: Amorphous Sediment Urine 1+; Bacteria Urine Moderate (10-30); Culture Indicated Urine Specimen Cultured; RBC Urine 1-5/HPF (0-5/HPF); Squamous Epithelial Cell Urine 1-5 /HPF (0-5/HPF); WBC Urine 10-30/HPF (0-5/HPF)
[2020-12-27 20:59] VITALS: BP 163/96; PULSE 99; RESP 17; O2SAT 96
--- NOTE | 2020-12-27 21:09 | ED.FEMALEGU ---
HPI - Female Genitourinary General Chief complaint: Urogenital-Female Stated complaint: PAIN LOWER BACK SPREADING AROUND LEFT SIDE Time Seen by Provider: 12/27/20 19:44 Source: patient Mode of arrival: Ambulatory Limitations: no limitations History of Present Illness HPI Narrative: 35-year-old female smoker with history of PCOS and heavy menstrual bleeding presents with a chief complaint of gradually worsening left lower quadrant pain and radiation around her left flank. She states the pain is severe and episodic. She denies any provocation or palliation. She denies any fever or chills. She has had no dizziness, weakness or lightheadedness. She denies any history of the same. She denies dysuria, frequency or urgency. Related Data Previous Rx's Medication Instructions Recorded medroxyprogesterone 10 mg tablet 10 mg PO BID #60 tab MDD 20mg 11/05/20 cefuroxime axetil 500 mg tablet 500 mg PO BID #14 tab 12/27/20 ketorolac 10 mg tablet 10 mg PO Q6H PRN #14 tab 12/27/20 oxycodone 5 mg tablet 5 mg PO Q4-6H PRN #10 tab 12/27/20 tamsulosin 0.4 mg capsule (Flomax) 0.4 mg PO DAILY #20 cap 12/27/20 Allergies Allergy/AdvReac Type Severity Reaction Status Date / Time hydrocodone [HYDROCODONE] Allergy Mild NAUSEA Verified 12/27/20 17:20 Review of Systems Review of Systems Narrative: GENERAL: Denies chills, fatigue, malaise, fever, sweats. HEENT: Denies sinus pain, ear pain, sore throat, difficulty swallowing, dizziness. RESPIRATORY: Denies dyspnea, cough, wheezing, hemoptysis, sputum. CARDIOVASCULAR: Denies chest pain, palpitations, orthopnea, edema, GASTROINTESTINAL: Denies nausea, vomiting, abdominal pain, diarrhea, constipation, melena. : See HPI MUSCULOSKELETAL: denies weakness, joint pain, or bony pain SKIN: Denies rash, skin lesions, or other NEUROLOGIC: Denies weakness, headache, numbness, change in speech, confusion, seizures, incoordination. PSYCHIATRIC: No concerning psychosocial issues. 12 point review of systems is negative except for those stated above Patient History Medical History Amenorrhea Anxiety Back pain GERD (gastroesophageal reflux disease) Heavy menstrual bleeding Inability to conceive, female Irregular menstrual cycle PCOS (polycystic ovarian syndrome) PCOS (polycystic ovarian syndrome) Scoliosis Severe menstrual cramps Surgical History History of tonsillectomy Family History Father Diabetes mellitus Mother Diabetes mellitus alcohol intake frequency: 0-2 drinks per day Substance Use Type: does not use Exam Narrative Exam Narrative: GENERAL: [35 year old patient appears stated age. Well-developed patient, in moderate distress, obviously uncomfortable, tearful HEAD: Atraumatic. Normocephalic. EYES: Pupils equal round and reactive. Extraocular motions intact. No scleral icterus. No injection or drainage. ENT: Nose without bleeding, purulent drainage. Throat without erythema, tonsillar hypertrophy or exudate. Airway patent. NECK: Trachea midline. Non tender CARDIOVASCULAR: Regular rate and rhythm without murmurs, gallops, or rubs. RESPIRATORY: Clear to auscultation. Breath sounds equal bilaterally. No wheezes, rales, or rhonchi. GASTROINTESTINAL: Abdomen soft, non-tender, nondistended. EXTREMITIES: No edema or joint tenderness. BACK: Nontender without deformity or crepitance. No flank tenderness. NEURO: AOx3. SKIN: No rash or erythema of visible areas Initial Vital Signs Initial Vital Signs: Vital Signs Temperature 97.7 F 12/27/20 17:15 Pulse Rate 94 H 12/27/20 17:15 Respiratory Rate 18 12/27/20 17:15 Blood Pressure 165/103 H 12/27/20 17:15 Pulse Oximetry 96 12/27/20 17:15 Course Orders Ordered: ED Orders 12/27/20 21:20 Basic Metabolic Panel Stat Complete Blood Count AUTO DIFF Stat Discontinued Medications Sodium Chloride (Normal Saline 0.9%) 1,000 mls @ 1,000 mls/hr IV BOLUS ONE Stop: 12/27/20 22:09 Ceftriaxone Sodium 1,000 mg/ (Sodium Chloride) 100 mls @ 200 mls/hr IV NOW ONE Stop: 12/27/20 21:11 Last Infusion: 12/27/20 22:11 Dose: 0 mls/hr Documented by: Admin: 12/27/20 21:27 Dose: 200 mls/hr Documented by: UNA Ketorolac Tromethamine (Ketorolac 30 Mg/Ml Vial) 15 mg IV NOW ONE Stop: 12/27/20 21:21 Last Admin: 12/27/20 21:28 Dose: 15 mg Documented by: UNA Ondansetron HCl (Ondansetron 4 Mg Odt Prepack) 1 bottle MISC SEEINSTR ONE Stop: 12/27/20 22:06 Last Admin: 12/27/20 22:15 Dose: 1 bottle Documented by: UNA Oxycodone/Acetaminophen (Oxycodone/Apap 5/325 Prepack) 1 bottle MISC SEEINSTR ONE Stop: 12/27/20 22:06 Last Admin: 12/27/20 22:15 Dose: 1 bottle Documented by: UNA Tamsulosin HCl (Tamsulosin 0.4 Mg Capsule) 0.4 mg PO NOW ONE Stop: 12/27/20 21:21 Last Admin: 12/27/20 21:29 Dose: 0.4 mg Documented by: UNA Reevaluation(s) Reevaluation #1: Significant improvement after above-stated therapies Vital Signs Vital signs: Vital Signs - 8 hr 12/27/20 20:59 12/27/20 22:22 Pulse Rate 99 H 70 Respiratory Rate 17 16 Blood Pressure 163/96 H 131/75 Pulse Oximetry 96 97 MDM - Female Genitourinary Lab Data Result diagrams: 12/27/20 21:20 12/27/20 21:20 Labs: Lab Results 12/27/20 12/27/20 12/27/20 Range/Units 18:58 21:20 21:20 WBC 10.2 (4.5-11.0) X10^3/uL RBC 5.10 (4.0-5.2) X10^6/uL Hgb 13.7 (12.0-16.0) g/dL Hct 41.9 (36-46) % MCV 82.0 (80-100) fL MCH 26.8 (26-34) PG MCHC 32.7 (30-36) % RDW 14.7 (11.6-14.8) % Plt Count 280 (150-400) X10^3/uL Neut % (Auto) 74.4 (50-75) % Lymph % (Auto) 19.9 L (25-40) % Grimes % (Auto) 3.5 (3-14) % Eos % (Auto) 1.8 L (2-4) % Baso % (Auto) 0.4 (0-2) % Neut # (Auto) 7500 H (6163-3505) /uL Lymph # (Auto) 2000 (9075-8976) /uL Grimes # (Auto) 400 (0-900) /uL Eos # (Auto) 200 (0-450) /uL Baso # (Auto) 0 (0-100) /uL Sodium 140 (137-145) mmol/L Potassium 3.7 (3.4-5.1) mmol/L Chloride 107 (98-107) mmol/L Carbon Dioxide 25 (22-32) mmol/L BUN 12 (7-17) mg/dL Creatinine 0.85 (0.52-1.04) mg/dL Estimated GFR > 60.0 (>60) mL/min BUN/Creatinine Ratio 14.1 (6-22) Glucose 140 H (70-100) mg/dL Calcium 9.2 (8.4-10.2) mg/dL Urine RBC 1-5/hpf (0-5/HPF) Urine WBC 10-30/hpf H (0-5/HPF) Ur Squamous Epith Cells 1-5 /hpf (0-5/HPF) Amorphous Sediment 1+ Urine Bacteria Moderate (10-30) H (None) Ur Culture Indicated? Specimen cultured Point of Care Testing Test Results Negative Urine Dip Bedside Urine Glucose Negative Bedside Urine Bilirubin - Negative Bedside Urine Ketone - Negative Urine Specific [place] 1.010 Bedside Urine Occult Blood +++ Bedside Urine pH 6 Bedside Urine Protein - Negative Bedside Urine Urobilinogen - Negative Bedside Urine Nitrite - Negative Bedside Urine Leukocytes + [address] scan - abdomen/pelvis: Radiologist's Impression: Chart Viewer Diagnostics Subcategory All Activity ??:?? All Time ??:?? All Subcategories Filter Laboratory Imaging Microbiology Pathology Blood Bank Tests Cardiovascular Other Specialty DATE TYPE STATUS REF RANGE/AUTHOR Hx 12/27/20 17:23 Abdomen/Pelvis CT Signed Brisa Dias 10/05/19 12:37 Pelvis Ultrasound Signed Vaibhav Molina 01/02/19 23:17 Toe X-Ray Signed Catia Basilio 05/14/16 19:53 Radiology - Historical ? 01/07/16 14:15 Radiology - Historical ? Kristy Gutierrez 35, F?1985 MRN#? [id number] [facility] ER,?Main ED??? 170.18cm 122.47kg BMI: 42.3kg/m? Urogenital-Female Acc#? [id number] Resus Status Not Ordered No Hx Avail Special Indicators No Data to Display Home Meds Not Confirmed Prescription Monitoring Program Total 45 MME/Day Pending Discharge MEDICATIONS (INSTRUCTIONS) LAST TAKEN Active cefuroxime axetil 500 mgPOBID#14 tab ketorolac 10 [id number]#14 tab ??medroxyprogesterone 10 mg tablet ??10 mgPOBID#60 tabMDD 20mg oxycodone 5 mgPOQ4-6HPRN#10 tab 45 MME/Day tamsulosin [Flomax] 0.4 mgPODAILY#20 cap Allergies hydrocodone (HYDROCODONE) NAUSEA Problems ? ONSET Kidney stone on left side Severe menstrual cramps Heavy menstrual bleeding Inability to conceive, female Irregular menstrual cycle PCOS (polycystic ovarian syndrome) Amenorrhea Upper respiratory infection Facial contusion Bilateral hand pain UTI (urinary tract infection) Vital Signs 12/27/20 22:22 BP 131/75? Pulse 70? Resp 16? O2 Sat 97? Delivery Room Air? Diagnostics Reports Kristy Gutierrez??35??F??1985 ? Allergy/Adv: hydrocodone Close Abdomen/Pelvis CT (Signed) Brisa Dias - 12/27/20 Pelvis Ultrasound (Signed) Vaibhav Molina - 10/05/19 Toe X-Ray (Signed) Catia Basilio - 01/02/19 Radiology - Historical 05/14/16 Radiology - Historical 01/07/16 Launch?[place] [address] CT Scan Report Signed Patient: Kristy Gutierrez MR#: [id number] : 1985 Acct:[id number] Age/Sex: 35 / F Date of Service: 12/27/20 Loc: ED Accession Number: [id number] ?? Procedure: CT kidney ureter bladder (KUB) Ordering Provider: Caryn Lewis D.O. PROCEDURE:? CT KIDNEY URETER BLADDER (KUB) ? INDICATIONS:? L flank pain ? TECHNIQUE:? Axial sections were acquired from the lung bases to the pubic symphysis.? Coronal and sagittal reformats were performed.? For radiation dose reduction, the following was used: ?automated exposure control, adjustment of mA and/or kV according to patient size.? ? COMPARISON:? ? None. ? FINDINGS:? Image quality:? Excellent.? ? Lung bases:? Unremarkable.? ? Heart:? No significant findings. ? URINARY: Right Kidney:? The right kidney is slightly atrophic at 9.2 cm in length.? Right Ureter:? No hydroureter.? ? Left Kidney:? A 6 mm stone is present at the ureteropelvic junction causing mild left lower pole hydronephrosis.? Subtle haziness in the parapelvic and lower pole perinephric fat. Left Ureter:? No other ureteral stones and no hydroureter. ? Bladder:? Normal wall thickness. No stones. ? ? ? ABDOMEN: Liver:? Unremarkable.? ? Gallbladder:? Normal. Biliary ducts:? Nondilated. Pancreas:? Normal. Spleen:? Normal size. Adrenal Glands:? No nodules. ? Stomach and Bowel:? Stomach, small bowel loops, and colon are unremarkable.? Normal appendix. Peritoneum:? No abnormal intraperitoneal fluid.? No free air.? ? Ventral Wall: Tiny fat containing umbilical hernia.? Abdominal Nodes:? No enlarged retroperitoneal or mesenteric lymph nodes.? Vessels:? Aorta and inferior vena cava are normal in size.? ? PELVIS: Pelvic Organs:? Uterus and ovaries are normal. Pelvic Nodes: Unremarkable. Miscellaneous: No inguinal hernias are seen. ? ? ? Bones:? Moderate thoracolumbar scoliosis.. ? IMPRESSION:? 1. There is an obstructing 6 mm left ureteropelvic junction stone. 2. Mild right renal atrophy may be secondary to remote infection versus congenital.? ? ? Dictated by: Brisa Dias M.D. on 12/27/2020 at 19:23 ? ? Approved by: Brisa Dias M.D. on 12/27/2020 at 19:30 ? MDM Narrative Medical decision making narrative: Patient with 6 mm obstructing stone and suggestion of UTI. No evidence of renal failure in serum, no elevated white blood cells. No signs of sepsis. Patient's pain is well controlled and patient is tolerating oral hydration. She is appropriate for oral antibiotics, pain control, discharge and close follow-up. She has been given extensive return precautions and questions answered to her apparent satisfaction Discharge Plan Departure Patient Disposition: Home Clinical Impression: Kidney stone on left side Instructions: DI for Kidney Stones Activity Restrictions/Additional Instructions: *You have been diagnosed with [left-sided kidney stone] *What to do: *Please continue to take your regular medications as directed. [x ] New medication prescriptions sent to your pharmacy: [ [facility] ] [ ] New medication written as a paper prescription [ ] No new medications given *Please follow up with your primary care provider in 2-3 days, call for an appointment. Let them know you were seen in the Emergency Department and that we ask that you be seen in follow up. We will electronically transmit a record of today's note if your PCP is in our system *If you do not have a primary care provider please contact the [facility] Resource line at [phone]. They will ask some questions about your medical history and help get you set up with a doctor in the community. *Return to Emergency Department if you should have any new, worsening or concerning symptoms, such as [fever greater than 101 F, shaking chills, worsening pain, persistent vomiting or other bothersome symptoms] Prescriptions: New ketorolac 10 mg tablet 10 mg PO Q6H PRN (Reason: pain) Qty: 14 RF: 0 cefuroxime axetil 500 mg tablet 500 mg PO BID Qty: 14 RF: 0 oxycodone 5 mg tablet 5 mg PO Q4-6H PRN (Reason: pain) Qty: 10 RF: 0 tamsulosin [Flomax] 0.4 mg capsule 0.4 mg PO DAILY Qty: 20 RF: 0 No Action medroxyprogesterone 10 mg tablet 10 mg PO BID MDD 20mg Qty: 60 RF: 1 Referrals: Radha Barone ARNP [Primary Care Provider] - Judy Singh MD [Physician] -
[2020-12-27 21:25] LABS: Add Manual Diff / Slide Review NO; Basophils Absolute Auto 0 /uL (0-100); Basophils Percent Auto 0.4 % (0-2); Eosinophils Absolute Auto 200 /uL (0-450); Eosinophils Percent Auto 1.8 % (2-4); Hematocrit 41.9 % (36-46); Hemoglobin 13.7 g/dL (12.0-16.0); Lymphocytes Absolute Auto 2000 /uL (1100-4500); Lymphocytes Percent Auto 19.9 % (25-40); Mean Corpuscular HGB Conc 32.7 % (30-36); Mean Corpuscular Hemoglobin 26.8 PG (26-34); Monocytes Absolute Auto 400 /uL (0-900); Monocytes Percent Auto 3.5 % (3-14); Neutrophils Absolute Auto 7500 /uL (1500-7000); Neutrophils Percent Auto 74.4 % (50-75); Platelet Count 280 X10^3/uL (150-400); Red Cell Distribution Width 14.7 % (11.6-14.8); White Blood Cell Count 10.2 X10^3/uL (4.5-11.0)
[2020-12-27] MEDS: cefTRIAXone 1,000 MG in SODIUM CHLORIDE 0.9% 100 ML 200 ML IV (21:27)
[2020-12-27] MEDS: KETOROLAC 30 MG/ML VIAL 15 MG IV (21:28)
[2020-12-27] MEDS: TAMSULOSIN 0.4 MG CAPSULE PO (21:29)
[2020-12-27 21:36] LABS: BUN Creatinine Ratio 14.1 (6-22); Blood Urea Nitrogen 12 mg/dL (7-17); Calcium 9.2 mg/dL (8.4-10.2); Carbon Dioxide 25 mmol/L (22-32); Chloride 107 mmol/L (98-107); Estimated Glomerular Filt Rate > 60.0 mL/min (>60); Glucose 140 mg/dL (70-100); HEMOLYSIS < 15 (0-50); Potassium 3.7 mmol/L (3.4-5.1); Sodium 140 mmol/L (137-145)
[2020-12-27] MEDS: OXYCODONE/APAP 5/325 PREPACK 1 BOTTLE MISC (22:15)
[2020-12-27] MEDS: ONDANSETRON 4 MG ODT PREPACK 1 BOTTLE MISC (22:15)
[2020-12-27 22:22] VITALS: BP 131/75; PULSE 70; RESP 16; O2SAT 97
== END 2020-12-27 22:23 | disposition home or self-care (01) ==
PROVIDERS: Emergency Medicine; Emergency Provider Emergency Medicine; PCP Nurse Practitioner
DX: N20.0 Calculus of kidney (principal)
CPT/HCPCS: 36415; 74176; 80048; 81003; 81015; 81025; 85025; 87086; 96365; 96375; 99284; J0696; J1885

== ENCOUNTER → 2021-02-05 10:01 | Outpatient (CLI) | payer OTHER, SELFPAY ==
--- NOTE | 2021-02-05 | DI.US.S_ITS ---
PROCEDURE: US RENAL COMPLETE INDICATIONS: CALCULUS OF KIDNEY TECHNIQUE: Real-time scanning was performed of the kidneys and bladder, with image documentation. COMPARISON: [facility], CT, CT KIDNEY URETER BLADDER (KUB), 12/27/2020, 18:55. FINDINGS: Kidneys: Kidneys are normal in size. Right kidney measures 7.5 cm long; left kidney measures 12.2 cm long. Right renal cortical thickness is 1.1 cm; left renal cortical thickness is 2.2 cm. Renal cortical echotexture is normal. No hydronephrosis. 3.1 millimeter nonobstructing stone noted in the lower pole of left kidney. No suspicious solid mass lesions. Bladder: Pre-void bladder volume is 47 mL. Urinary bladder difficult to visualize following voiding secondary to patient body habitus, however postvoid residual is likely near 0 mL. Pre-void images demonstrate no intraluminal masses or stones. On pre-void images, left ureteral jet is noted with color Doppler interrogation. (Of note, ureteral jets may not be detectable in up to 25% of cases due to insufficient differences in specific gravity between ureteral and bladder urine). Miscellaneous: No free pelvic fluid. IMPRESSION: 1. Nonobstructing left renal stone. 2. Right renal atrophy. Dictated by: Catia Basilio MD, PhD on 02/05/2021 at 12:03 Approved by: Catia Basilio MD, PhD on 02/05/2021 at 12:08
== END ==
PROVIDERS: PCP Nurse Practitioner; Referring Provider Urology; Visit Provider Urology
DX: N20.0 Calculus of kidney (principal); N26.1 Atrophy of kidney (terminal)
CPT/HCPCS: 76770

== ENCOUNTER → 2021-05-14 11:17 | Outpatient (CLI) | payer OTHER, SELFPAY ==
[2021-05-14 13:19] LABS: COVID19 -Nasal RAPID POSITIVE (Negative)
== END ==
PROVIDERS: PCP Nurse Practitioner; Referring Provider Nurse Practitioner Family; Visit Provider Nurse Practitioner Family
DX: U07.1 COVID-19 (principal); Z20.822 Contact with and (suspected) exposure to COVID-19
CPT/HCPCS: 87635

== ENCOUNTER 2022-03-08 21:06 | Emergency (ER) | payer OTHER, SELFPAY ==
[2022-03-08 21:15] VITALS: BP 160/100; PULSE 99; RESP 18; TEMP 36.2; O2SAT 100
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
[2022-03-08 22:41] VITALS: BP 155/80; PULSE 85; RESP 16; O2SAT 100
== END 2022-03-08 22:42 | disposition home or self-care (01) ==
PROVIDERS: Emergency Provider Emergency Medicine; PCP Nurse Practitioner
DX: S93.401A Sprain of unspecified ligament of right ankle, initial encounter (principal); V89.2XXA Person injured in unspecified motor-vehicle accident, traffic, initial encounter
CPT/HCPCS: 73610; 99283

== ENCOUNTER → 2022-03-30 09:53 | Outpatient (CLI) | payer OTHER, SELFPAY ==
[2022-03-30 11:41] LABS: Influenza A - CEPHEID Flu A NEGATIVE (NEGATIVE); Influenza B - CEPHEID Flu B NEGATIVE (NEGATIVE); Respiratory Syncytial Virus Negative (Negative)
[2022-03-30 11:44] LABS: COVID-19 CEPHEID 4-PLEX PCR Negative (Negative)
== END ==
PROVIDERS: PCP Nurse Practitioner; Visit Provider Nurse Practitioner Family
DX: J02.9 Acute pharyngitis, unspecified (principal)
CPT/HCPCS: 0241U

== ENCOUNTER 2022-04-05 19:20 | Emergency (ER) | payer OTHER, SELFPAY ==
[2022-04-05 19:25] VITALS: BP 166/88; PULSE 113; RESP 16; TEMP 36.7; O2SAT 99; BMI 49.8
--- NOTE | 2022-04-05 19:43 | ED_ITS ---
HPI - URI/Sore Throat General Chief Complaint: Upper Respiratory Symptoms Stated Complaint: Congestion, chest congestion, cough, blacking out Time Seen by Provider: 04/05/22 19:30 Source: patient Mode of arrival: Ambulatory History of Present Illness HPI Narrative: 36-year-old female smoker with history of kidney stones, polycystic ovarian syndrome presents with a chief complaint of multiple upper respiratory type complaints over the past few weeks. She states she is had runny nose, nasal congestion, sneezing, sore throat and cough. She states she is not significantly short of breath but her cough seems to be worsening. On occasion it is productive of sputum. She states her cough is worse with deep breath. She denies any hemoptysis, recent travel, trauma or history of clot. She denies abdominal pain nausea or vomiting. She denies dysuria, frequency or urgency. She states she is been taking every [id number] medication she can get her hands on with little to no relief. She states it on a few occasions she is been coughing so vigorously that she comes close to blacking out Related Data Previous Rx's Medication Instructions Recorded ketorolac 10 mg tablet 10 mg PO Q6H PRN pain #14 tabs 12/27/20 medroxyprogesterone 10 mg tablet 10 mg PO BID #60 tabs 01/24/21 tamsulosin 0.4 mg capsule See Rx Instructions .Route 03/03/21 .COMPLEX #30 caps benzonatate 100 mg capsule 100 mg PO BID PRN cough #20 caps 03/30/22 benzonatate 200 mg capsule 200 mg PO BID PRN cough #20 caps 04/05/22 doxycycline hyclate 100 mg tablet 100 mg PO BID #20 tabs 04/05/22 Allergies Allergy/AdvReac Type Severity Reaction Status Date / Time hydrocodone [HYDROCODONE] Allergy Mild NAUSEA Verified 04/01/22 08:09 Review of Systems Review of Systems Narrative: GENERAL: See HPI HEENT: See HPI RESPIRATORY: See HPI CARDIOVASCULAR: Denies chest pain, palpitations, orthopnea, edema, GASTROINTESTINAL: Denies nausea, vomiting, abdominal pain, diarrhea, constipation, melena. : Denies dysuria, frequency, incontinence, hematuria, urinary retention. MUSCULOSKELETAL: denies weakness, joint pain, or bony pain SKIN: Denies rash, skin lesions, or other NEUROLOGIC: Denies weakness, headache, numbness, change in speech, confusion, seizures, incoordination. PSYCHIATRIC: No concerning psychosocial issues. 12 point review of systems is negative except for those stated above Patient History Medical History Amenorrhea Anxiety Back pain GERD (gastroesophageal reflux disease) Heavy menstrual bleeding Inability to conceive, female Irregular menstrual cycle PCOS (polycystic ovarian syndrome) PCOS (polycystic ovarian syndrome) Scoliosis Severe menstrual cramps Viral URI with cough Surgical History History of tonsillectomy Family History Father Diabetes mellitus Mother Diabetes mellitus Social History Smoking Status: Current every day smoker Tobacco: How many years used: 16 quit status: considering quitting alcohol intake: current substance use type: does not use Smoking Status: Current every day smoker alcohol intake frequency: 0-2 drinks per day Substance Use Type: does not use Exam Narrative Exam Narrative: GENERAL: [36] year old patient appears stated age. Well-developed patient, in mild distress. Anxious HEAD: Atraumatic. Normocephalic. EYES: Pupils equal round and reactive. Extraocular motions intact. No scleral icterus. No injection or drainage. ENT: Clear nasal drainage bilaterally, clear postpharyngeal drainage, no pharyngeal erythema, edema or exudate, airway patent. NECK: Trachea midline. Non tender CARDIOVASCULAR: Tachycardic but regular rhythm without murmurs, gallops, or rubs. RESPIRATORY: Frequent cough, and expiratory wheeze, deep breath illicits cough, no obvious rales or rhonchi GASTROINTESTINAL: Abdomen soft, non-tender, nondistended. EXTREMITIES: No edema or joint tenderness. BACK: Nontender without deformity or crepitance. No flank tenderness. NEURO: AOx3. SKIN: No rash or erythema of visible areas Initial Vital Signs Initial Vital Signs: Vital Signs Temperature 98.1 F 04/05/22 19:25 Pulse Rate 113 H 04/05/22 19:25 Respiratory Rate 16 04/05/22 19:25 Blood Pressure 166/88 H 04/05/22 19:25 Pulse Oximetry 99 04/05/22 19:25 Oxygen Delivery Method 04/05/22 19:25 Course Orders Ordered: Discontinued Medications Albuterol (Albuterol Hfa Prepack) 1 box MISC SEEINSTR ONE Stop: 04/05/22 21:07 Last Admin: 04/05/22 21:23 Dose: 1 box Documented By: Albuterol/Ipratropium (Albuterol/Ipratropium 3 Ml Ampul) 3 ml INH NOW ONE Stop: 04/05/22 20:05 Last Admin: 04/05/22 21:23 Dose: 3 ml Documented By: Doxycycline Hyclate (Doxycycline Hyclate 100 Mg Tablet) 100 mg PO NOW ONE Stop: 04/05/22 21:07 Last Admin: 04/05/22 21:25 Dose: 100 mg Documented By: SB Vital Signs Vital signs: Vital Signs - 8 hr 04/05/22 19:25 Temperature 98.1 F Pulse Rate 113 H Respiratory Rate 16 Blood Pressure 166/88 H Pulse Oximetry 99 Oxygen Delivery Method Room Air MDM - URI/Sore Throat Lab Data Labs: Lab Results 04/05/22 04/05/22 Range/Units 19:36 19:37 Urine RBC None seen (0-5/HPF) Urine WBC 1-5/hpf (0-5/HPF) Ur Squamous Epith Cells 1-5 /hpf (0-5/HPF) Amorphous Sediment 2+ Urine Bacteria Moderate (10-30) H (None) Urine Mucus 2+ H (Negative) Ur Culture Indicated? Specimen cultured SARS-CoV-2 (PCR) Negative (Negative) Influenza A (RT-PCR) Flu a negative (NEGATIVE) Influenza B (RT-PCR) Flu b negative (NEGATIVE) RSV (PCR) Negative (Negative) Point of Care Testing Test Results Negative Urine Dip Bedside Urine Glucose Negative Bedside Urine Bilirubin - Negative Bedside Urine Ketone - Negative Urine Specific [place] 1.025 Bedside Urine Occult Blood - Negative Bedside Urine pH 6.0 Bedside Urine Protein +/- 15 Bedside Urine Urobilinogen - Negative Bedside Urine Nitrite - Negative Bedside Urine Leukocytes - Negative Esterase Imaging Data Chest x-ray: Radiologist's Impression: [address] [address] XRay Report Signed Patient: Kristy Gutierrez MR#: [id number] : 1985 Acct:[id number] Age/Sex: 36 / F Date of Service: 04/05/22 Loc: ED Accession Number: [id number] ?? Procedure: XR chest 2V Ordering Provider: Alvarado Stovall D.O. PROCEDURE:? XR CHEST 2V ? INDICATIONS:? cough, SOB ? TECHNIQUE:? 2 views of the chest were acquired.? ? COMPARISON:? [facility], , CHEST 2 VIEW, 05/14/2016, 19:45. ? FINDINGS:? ? Surgical changes and devices:? None.? ? Lungs and pleura:? Lungs are clear.? No pleural effusions or pneumothorax.? ? Mediastinum:? Mediastinal contours are normal.? Heart size is normal.? ? Bones and chest wall:? No suspicious bony abnormalities.? Soft tissues appear unremarkable.? ? IMPRESSION:? No acute cardiopulmonary abnormality. ? ? ? Dictated by: Brandon Beauchamp M.D. on 04/05/2022 at 19:59 ? ? Approved by: Brandon Beauchamp M.D. on 04/05/2022 at 20:00 ? Discharge Plan Departure Patient Disposition: Home Clinical Impression: Atypical pneumonia Instructions: DI for Atypical Pneumonia Activity Restrictions/Additional Instructions: *You have been diagnosed with [atypical pneumonia. As we discussed the viral panel was negative for flu, COVID and RSV. Your chest x-ray showed no evidence of any significant abnormality *What to do: *Please consider the use of [id number]-[id number] antihistamines such as cetirizine syrup which can dry the secretions that are causing many of these symptoms. As we discussed, a tsp of honey is a great option to help with cough if needed. * prescription sent to [facility] [place] *Please follow up with your primary care provider in 2-3 days, call for an appointment. Let them know you were seen in the Emergency Department and that we ask that you be seen in follow up. We will electronically transmit a record of today's note if your PCP is in our system *If you do not have a primary care provider please contact the [facility] Resource line at [phone]. They will ask some questions about your medical history and help get you set up with a doctor in the community. *Return to Emergency Department if you should have any new, worsening or concerning symptoms increased work of breathing with flaring of nostrils, using belly to breathe, persistent vomiting, or other bothersome symptoms Prescriptions: New benzonatate 200 mg capsule 200 mg PO BID PRN (Reason: cough) Qty: 20 0RF doxycycline hyclate 100 mg tablet 100 mg PO BID Qty: 20 0RF No Action benzonatate 100 mg capsule 100 mg PO BID PRN (Reason: cough) Qty: 20 0RF tamsulosin 0.4 mg capsule See Rx Instructions .ROUTE .COMPLEX Qty: 30 3RF Dose Instruction: TAKE 1 CAPSULE BY MOUTH DAILY Rx Instructions: TAKE 1 CAPSULE BY MOUTH DAILY medroxyprogesterone 10 mg tablet 10 mg PO BID MDD 20mg Qty: 60 1RF Rx Instructions: 1 TAB PO TWICE DAILY until appointment on October 31. ketorolac 10 mg tablet 10 mg PO Q6H PRN (Reason: pain) Qty: 14 0RF Referrals: Radha Barone ARNP [Primary Care Provider] - Visit Report Forms: Patient Portal/API
--- NOTE | 2022-04-05 19:46 | DI.RAD.S_ITS ---
PROCEDURE: XR CHEST 2V INDICATIONS: cough, SOB TECHNIQUE: 2 views of the chest were acquired. COMPARISON: [facility], , CHEST 2 VIEW, 05/14/2016, 19:45. FINDINGS: Surgical changes and devices: None. Lungs and pleura: Lungs are clear. No pleural effusions or pneumothorax. Mediastinum: Mediastinal contours are normal. Heart size is normal. Bones and chest wall: No suspicious bony abnormalities. Soft tissues appear unremarkable. IMPRESSION: No acute cardiopulmonary abnormality. Dictated by: Brandon Beauchamp M.D. on 04/05/2022 at 19:59 Approved by: Brandon Beauchamp M.D. on 04/05/2022 at 20:00
[2022-04-05 20:02] LABS: Amorphous Sediment Urine 2+; Bacteria Urine Moderate (10-30); Culture Indicated Urine Specimen Cultured; Mucus Urine 2+ (Negative); RBC Urine None Seen (0-5/HPF); Squamous Epithelial Cell Urine 1-5 /HPF (0-5/HPF); WBC Urine 1-5/HPF (0-5/HPF)
[2022-04-05 20:16] LABS: COVID-19 CEPHEID 4-PLEX PCR Negative (Negative); Influenza A - CEPHEID Flu A NEGATIVE (NEGATIVE); Influenza B - CEPHEID Flu B NEGATIVE (NEGATIVE); Respiratory Syncytial Virus Negative (Negative)
[2022-04-05] MEDS: ALBUTEROL/IPRATROPIUM 3 ML AMPUL INH (21:23)
[2022-04-05] MEDS: ALBUTEROL HFA PREPACK 1 BOX MISC (21:23)
[2022-04-05] MEDS: DOXYCYCLINE HYCLATE 100 MG TABLET PO (21:25)
== END 2022-04-05 21:36 | disposition home or self-care (01) ==
PROVIDERS: Emergency Provider Emergency Medicine; PCP Nurse Practitioner
DX: J18.9 Pneumonia, unspecified organism (principal); Z20.822 Contact with and (suspected) exposure to COVID-19
CPT/HCPCS: 0241U; 71046; 81003; 81015; 81025; 99283; 99284

== ENCOUNTER 2022-12-07 17:25 | Emergency (ER) | payer OTHER, SELFPAY ==
[2022-12-07 17:27] VITALS: BP 139/95; PULSE 104; RESP 20; TEMP 36.9; O2SAT 96; BMI 52.0
[2022-12-07] MEDS: ACETAMINOPHEN 325 MG TABLET 975 MG PO (17:52)
[2022-12-07] MEDS: IBUPROFEN 400 MG TABLET 800 MG PO (17:52)
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
== END 2022-12-07 18:45 | disposition home or self-care (01) ==
PROVIDERS: Emergency Provider Emergency Medicine; PCP Nurse Practitioner
DX: T22.012A Burn of unspecified degree of left forearm, initial encounter (principal)
CPT/HCPCS: 99282; 99283

== ENCOUNTER 2023-02-19 11:46 | Emergency (ER) | payer OTHER, SELFPAY ==
[2023-02-19 11:49] VITALS: BP 152/99; PULSE 104; RESP 16; TEMP 36.2; O2SAT 96; BMI 45.1
--- NOTE | 2023-02-19 11:57 | DI.US.S_ITS ---
PROCEDURE: US PERIPH VENOUS LOW EXTREM RT INDICATIONS: RIGHT CALF PAIN AND SWELLING TECHNIQUE: Real-time imaging, as well as color and pulse Doppler interrogation, were performed of the lower extremity deep veins from the inguinal ligament to the popliteal fossa, with documentation of the visualized calf veins. COMPARISON: None. FINDINGS: The common femoral, femoral, popliteal, and the visualized calf veins are normally compressible, and free of intraluminal thrombus. Color and pulse Doppler demonstrate normal phasic intraluminal flow. There is normal augmentation response to distal compression maneuver. The greater saphenous vein in the proximal and mid calf as well as ankle is noncompressible. This thrombus is located greater than 5 cm from the GSV/common femoral vein junction. IMPRESSION: 1. No acute deep venous thrombosis. 2. Superficial venous thrombosis in the GSV from the proximal calf to ankle. Dictated by: Luna Zuñiga M.D. on 02/19/2023 at 12:48 Approved by: Luna Zuñiga M.D. on 02/19/2023 at 12:51
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
[2023-02-19 12:52] VITALS: PULSE 96
[2023-02-19 12:54] VITALS: BP 137/84; PULSE 90; O2SAT 96
[2023-02-19 13:00] VITALS: PULSE 93; O2SAT 95
== END 2023-02-19 13:35 | disposition home or self-care (01) ==
PROVIDERS: Emergency Provider Physician Assistant Medical; PCP Nurse Practitioner
DX: I82.811 Embolism and thrombosis of superficial veins of right lower extremity (principal); Z79.899 Other long term (current) drug therapy
CPT/HCPCS: 93971; 99283

== ENCOUNTER → 2023-03-03 09:34 | Outpatient (CLI) | payer OTHER, SELFPAY ==
--- NOTE | 2023-03-03 09:35 | DI.US.S_ITS ---
PROCEDURE: US [facility] VENOUS LOW EXTREM RT INDICATIONS: FOLLOW-UP SUPERFICIAL THROMBUS TECHNIQUE: Real-time imaging, as well as color and pulse Doppler interrogation, were performed of the lower extremity deep veins from the inguinal ligament to the popliteal fossa, with documentation of the visualized calf veins. COMPARISON: [facility], , US [facility] VENOUS LOW EXTREM RT, 02/19/2023, 12:07. FINDINGS: The common femoral, femoral, popliteal, and the visualized calf veins are normally compressible, and free of intraluminal thrombus. Color and pulse Doppler demonstrate normal phasic intraluminal flow. There is normal augmentation response to distal compression maneuver. There is superficial venous thrombosis with occlusive thrombus within the greater saphenous vein seen inferior to the knee, extending towards the level of the ankle. IMPRESSION: No findings of lower extremity deep venous thrombosis. Superficial venous thrombosis is seen involving the distal greater saphenous vein, which is similar to the prior ultrasound. Dictated by: Graham Flowers M.D. on 03/03/2023 at 15:54 Approved by: Graham Flowers M.D. on 03/03/2023 at 15:56
[2023-03-03 10:42] LABS: Alanine Aminotransferase 53 IU/L (<35); Albumin 3.7 g/dL (3.5-5.0); Albumin Globulin Ratio 1.3 (1.0-2.8); Alkaline Phosphatase 87 U/L (38-126); Aspartate Aminotransferase 32 IU/L (14-36); BUN Creatinine Ratio 16.2 (6-22); Bilirubin Total 0.4 mg/dL (0.2-1.3); Blood Urea Nitrogen 11 mg/dL (7-17); Calcium 9.4 mg/dL (8.4-10.2); Carbon Dioxide 24 mmol/L (22-32); Chloride 105 mmol/L (98-107); Cholesterol 187 mg/dL (140-199); Estimated Glomerular Filt Rate > 60 mL/min (>60); Globulin 2.9 g/dL (1.7-4.1); Glucose 105 mg/dL (70-100); HDL Cholesterol 41 mg/dL (40-60); HEMOLYSIS < 15 (0-50); LDL Cholesterol Calculated 105 mg/dL (<100); Potassium 4.4 mmol/L (3.4-5.1); Sodium 137 mmol/L (137-145); Total Protein 6.6 g/dL (6.3-8.2); Triglycerides 204 mg/dL (35-150)
[2023-03-03 10:45] LABS: Hemoglobin A1C% w Est Avg Glu 6.1 % (4.0-6.0)
[2023-03-03 11:13] LABS: TSH w/ Reflex to FT4 1.78 uIU/mL (0.47-4.68)
[2023-03-03 17:12] LABS: Creatinine Urine Random 123.3 mg/dL
[2023-03-03 17:15] LABS: Microalbumi Creatinin Ratio Ur 9.7 ug/mg CR (<30); Microalbumin Urine Random 1.2 mg/dL (0-1.6)
[2023-03-06 11:35] LABS: Protein C Antigen 96 % (60-150)
[2023-03-06 17:34] LABS: von Willebrand Factor Activity 84 % (50-200)
== END ==
PROVIDERS: Family Medicine; PCP Nurse Practitioner; Referring Provider Physician Assistant; Visit Provider Physician Assistant
DX: I82.811 Embolism and thrombosis of superficial veins of right lower extremity (principal); I10 Essential (primary) hypertension; R60.0 Localized edema; E66.9 Obesity, unspecified; R73.01 Impaired fasting glucose; F10.10 Alcohol abuse, uncomplicated; Z83.2 Family history of diseases of the blood and blood-forming organs and certain disorders involving the immune mechanism
CPT/HCPCS: 36415; 80053; 80061; 82043; 82570; 83036; 84443; 85245; 85302; 93971

== ENCOUNTER 2024-03-24 21:43 | Emergency (ER) | payer OTHER, SELFPAY ==
[2024-03-24 21:52] VITALS: BP 155/104; PULSE 85; RESP 19; TEMP 36.4; BMI 46.5
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
[2024-03-24] MEDS: predniSONE 20 MG TABLET PO (22:23)
[2024-03-24] MEDS: diphenhydrAMINE 25 MG TABLET PO (22:23)
[2024-03-24] MEDS: BACITRACIN OINT 0.9 GM PCKT 1 APPLIC TOP (22:23)
== END 2024-03-24 23:12 | disposition home or self-care (01) ==
PROVIDERS: Emergency Provider Emergency Medicine; PCP Nurse Practitioner
DX: L50.9 Urticaria, unspecified (principal); T78.40XA Allergy, unspecified, initial encounter
CPT/HCPCS: 99283

== ENCOUNTER 2024-07-19 23:14 | Emergency (ER) | payer OTHER, SELFPAY ==
[2024-07-19 23:13] VITALS: BP 147/95; PULSE 73; RESP 16; TEMP 36.8; O2SAT 97; BMI 45.4
--- NOTE | 2024-07-19 23:26 | DI.RAD.S_ITS ---
PROCEDURE: XR CHEST 1V INDICATIONS: chest pain TECHNIQUE: One view of the chest was acquired. COMPARISON: [facility], CR, XR CHEST 2V, 04/05/2022, 19:50. FINDINGS: Surgical changes and devices: None. Lungs and pleura: Lungs are clear. No pleural effusions or pneumothorax. Mediastinum: Mediastinal contours appear normal. Heart size is normal. Bones and chest wall: No suspicious bony lesions. Overlying soft tissues appear unremarkable. IMPRESSION: Stable radiographic evaluation of the chest without acute cardiopulmonary abnormalities or focal consolidation. Dictated by: Imer Arita M.D. on 07/20/2024 at 0:04 Approved by: Imer Arita M.D. on 07/20/2024 at 0:04
[2024-07-19 23:31] VITALS: PULSE 86
--- NOTE | 2024-07-19 23:37 | EKG_ITS ---
[place] [id number] [place] [id number] Test Date: 2024-07-19 Pat Name: Kristy Gutierrez Department: [facility] Room: Gender: Female Rn Neurosurgical: PIYUSH : 1985 Requested By: Order Number: [id number] Reading MD: Alberto Goss MD Measurements Intervals [place] Rate: 83 P: 22 WV: 150 QRS: -3 QRSD: 72 T: 0 QT: 364 QTc: 427 Interpretive Statements Sinus rhythm with occasional premature ventricular complexes Electronically Signed On 07-20-2024 7:41:00 PDT by Alberto Goss MD
[2024-07-20] VITALS (7 sets, daily range): BP systolic 120–134; BP diastolic 63–74; PULSE 71–100; RESP 16–32; O2SAT 93–96
--- NOTE | 2024-07-20 00:04 | PC.NURSE ---
pt states she was walking across the street when she became dizzy and had to hold on something to keep from passing out until she could sit down, pt states she felt hot, flushed, like she couldn't think after the episode pt states when she closes her eyes she feels like the room is spinning. pt states recent illness but she has been back to work before now, she did eat before coming to work and has been taking in fluids without difficulty no previous epsiodes like this, denies any pain with episode
[2024-07-20 00:06] LABS: Add Manual Diff / Slide Review NO; Basophils Absolute Auto 100 /uL (0-100); Basophils Percent Auto 0.9 % (0-2); Eosinophils Absolute Auto 100 /uL (0-450); Eosinophils Percent Auto 1.9 % (2-4); Hematocrit 36.7 % (36-46); Hemoglobin 12.1 g/dL (12.0-16.0); Lymphocytes Absolute Auto 1600 /uL (1100-4500); Lymphocytes Percent Auto 21.1 % (25-40); Mean Corpuscular HGB Conc 32.8 % (30-36); Mean Corpuscular Hemoglobin 24.9 PG (26-34); Mean Corpuscular Volume 75.7 fL (80-100); Monocytes Absolute Auto 500 /uL (0-900); Monocytes Percent Auto 6.9 % (3-14); Neutrophils Absolute Auto 5300 /uL (1500-7000); Neutrophils Percent Auto 69.2 % (50-75); Platelet Count 317 X10^3/uL (150-400); Red Blood Cell Count 4.85 X10^6/uL (4.0-5.2); Red Cell Distribution Width 15.6 % (11.6-14.8); White Blood Cell Count 7.6 X10^3/uL (4.5-11.0)
[2024-07-20 00:29] LABS: Prothrombin Time 11.6 SECONDS (9.4-12.5)
[2024-07-20 00:32] LABS: PTT Partial Thromboplastin Tim 29 SECONDS (25.1-36.5)
[2024-07-20 00:34] LABS: Alanine Aminotransferase 35 IU/L (<35); Albumin Globulin Ratio 1.3 (1.0-2.8); Alkaline Phosphatase 84 U/L (38-126); Aspartate Aminotransferase 42 IU/L (14-36); BUN Creatinine Ratio 23.1 (6-22); Bilirubin Total 0.5 mg/dL (0.2-1.3); Blood Urea Nitrogen 15 mg/dL (7-17); Calcium 9.2 mg/dL (8.4-10.2); Carbon Dioxide 23 mmol/L (22-32); Chloride 108 mmol/L (98-107); Creatine Kinase 41 U/L (30-135); Estimated Glomerular Filt Rate > 60 mL/min (>60); Glucose 116 mg/dL (70-100); HEMOLYSIS 15 (0-50); Lipase 118 U/L (23-300); Magnesium 1.9 mg/dL (1.6-2.3); Sodium 140 mmol/L (137-145)
[2024-07-20 00:46] LABS: NT-proBNP (BNP-Adult 18+) 32 pg/mL (<125); Troponin I < 0.012 ng/mL (0.01-0.034)
--- NOTE | 2024-07-20 01:23 | ED_ITS ---
HPI - Syncope General Chief Complaint: Syncope Stated Complaint: near syncope Time Seen by Provider: 07/19/24 23:56 Source: EMS Mode of arrival: EMS Limitations: no limitations History of Present Illness HPI narrative: Patient is a healthy 39-year-old female presenting to day with near syncopal episode. She was at work at an assisted care facility walking down when she incidentally got very dizzy lightheaded. She reports that she had to stop and catch herself. She did not fall. She continues to have feelings in the ambulance as well. She reports that she ate a normal dinner at 9:00 p.m. 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 She had only been there for a couple hours. She was staying hydrated. No chest pain or shortness of breath. No palpitations. This is not happened to her before. She reports that she recently got over an illness but it was no longer ill. Related Data Home Medications Medication Instructions Recorded Confirmed aspirin 325 mg tablet 325 mg PO DAILY 03/02/23 03/22/23 Previous Rx's Medication Instructions Recorded bupropion HCl 150 mg 24 hr tablet, 150 mg PO QAM #90 tabs 03/22/23 extended release Allergies Allergy/AdvReac Type Severity Reaction Status Date / Time hydrocodone [HYDROCODONE] Allergy Mild NAUSEA Verified 03/22/23 11:15 Patient History Medical History Depression with anxiety Superficial thrombosis of right lower extremity Family history of clotting disorder Lower extremity edema Hypertension Obesity Viral URI with cough Kidney stone on left side Severe menstrual cramps Heavy menstrual bleeding Inability to conceive, female Irregular menstrual cycle PCOS (polycystic ovarian syndrome) Amenorrhea Back pain GERD (gastroesophageal reflux disease) Anxiety Scoliosis UTI (urinary tract infection) Surgical History History of tonsillectomy Family History Father Diabetes mellitus Mother Diabetes mellitus Brother History of stroke Sister Hx of blood clots Grandmother Hx of stroke associated with blood clotting tendency Social History Smoking Status: Current every day smoker Tobacco: How many years used: 16 quit status: considering quitting alcohol intake: current substance use type: marijuana (vapes) Smoking Status: Current every day smoker tobacco type: cigarettes alcohol intake frequency: 0-2 drinks per day Exam Initial Vital Signs Initial Vital Signs: Vital Signs Temperature 98.3 F 07/19/24 23:13 Pulse Rate 73 07/19/24 23:13 Respiratory Rate 16 07/19/24 23:13 Blood Pressure 147/95 H 07/19/24 23:13 Pulse Oximetry 97 07/19/24 23:13 Oxygen Delivery Method Room Air 07/19/24 23:13 GENERAL: Alert well-appearing 39-year-old female and in no acute distress. HEENT: Head atraumatic,EOMI, pupils reactive, face symmetric, moist mucous membranes CARDIOVASCULAR: Regular rate and rhythm without murmurs, rubs or gallops. RESPIRATORY: Breath sounds equal bilaterally, no wheezes rales or rhonchi. ABDOMEN: Soft, nontender. Normoactive bowel sounds all 4 quadrants. No guarding or rebound. EXTREMITIES: Normal range of motion, no clubbing or edema. Neurovascularly intact NEUROLOGICAL: Alert and oriented x4.Normal gait and speech. Cranial nerves II through XII grossly intact. Scenario Writer strength equal bilaterally SKIN: Warm, dry, no laceration, no petechiae, no rashes or lesions. Scores GCS [place] coma scale eye opening: Spontaneous [place] coma scale verbal response: Orientated [place] coma scale motor response: Obey commands [place] coma scale total score: 15 NIH Stroke Scale Level of Conciousness: Alert, keenly responsive Ask month/age: Answers both questions correctly. Open/close eyes, close hand: Performs both tasks correctly Best gaze horizontal: Normal Visual cesar: No visual loss Facial palsy: Normal symetrical movement Left arm drift: No drift for full 10 sec Right arm drift: No drift for full 10 sec Left leg drift: No drift for full 5 sec Right leg drift: No drift for full 5 sec Limb ataxia: Absent Sensory on face/arms/legs: Normal, no sensory loss Best language: No aphasia, normal Dysarthria: Normal Extinction or inattention: No abnormality Total NIH Stroke scale score: 0 Course Orders Ordered: ED Orders 07/19/24 23:26 XR chest 1V Stat EKG-12 Lead Stat 07/19/24 23:57 Complete Blood Count AUTO DIFF Stat Comprehensive Metabolic Panel Stat Lipase Stat Magnesium Stat NT-proBNP (BNP-Adult 18+) Stat PTT Partial Thromboplastin Damian Stat Prothrombin Time INR Stat Troponin & CK Cardiac Panel Stat Discontinued Medications Aspirin (Aspirin 81 Mg Chew Tab) 324 mg PO NOW ONE Stop: 07/19/24 23:27 Last Admin: 07/20/24 00:08 Dose: Not Given Documented By: DILEEP Vital Signs Vital signs: Vital Signs - 8 hr 07/19/24 23:13 07/19/24 23:31 07/20/24 00:00 Temperature 98.3 F Pulse Rate 73 86 71 Respiratory Rate 16 25 H Blood Pressure 147/95 H Pulse Oximetry 97 96 Oxygen Delivery Method Room Air 07/20/24 00:30 07/20/24 01:00 07/20/24 01:30 Temperature Pulse Rate 76 75 82 Respiratory Rate 32 H 18 27 H Blood Pressure Pulse Oximetry 94 93 96 Oxygen Delivery Method 07/20/24 01:56 07/20/24 01:57 07/20/24 02:00 Temperature Pulse Rate 100 H Respiratory Rate Blood Pressure 134/63 120/74 Pulse Oximetry 95 Oxygen Delivery Method 07/20/24 02:00 Temperature Pulse Rate 74 Respiratory Rate 16 Blood Pressure Pulse Oximetry 94 Oxygen Delivery Method MDM - Syncope Lab Data 07/19/24 23:57 07/19/24 23:57 Labs: Lab Results 07/19/24 Range/Units 23:57 WBC 7.6 (4.5-11.0) X10^3/uL RBC 4.85 (4.0-5.2) X10^6/uL Hgb 12.1 (12.0-16.0) g/dL Hct 36.7 (36-46) % MCV 75.7 L (80-100) fL MCH 24.9 L (26-34) PG MCHC 32.8 (30-36) % RDW 15.6 H (11.6-14.8) % Plt Count 317 (150-400) X10^3/uL Neut % (Auto) 69.2 (50-75) % Lymph % (Auto) 21.1 L (25-40) % [place] % (Auto) 6.9 (3-14) % Eos % (Auto) 1.9 L (2-4) % Baso % (Auto) 0.9 (0-2) % Neut # (Auto) 5300 (8750-6939) /uL Lymph # (Auto) 1600 (8851-4124) /uL [place] # (Auto) 500 (0-900) /uL Eos # (Auto) 100 (0-450) /uL Baso # (Auto) 100 (0-100) /uL PT 11.6 (9.4-12.5) SECONDS INR 1.0 (0.9-1.3) APTT 29 (25.1-36.5) SECONDS Sodium 140 (137-145) mmol/L Potassium 4.0 (3.4-5.1) mmol/L Chloride 108 H (98-107) mmol/L Carbon Dioxide 23 (22-32) mmol/L BUN 15 (7-17) mg/dL Creatinine 0.65 (0.52-1.04) mg/dL Estimated GFR > 60 (>60) mL/min BUN/Creatinine Ratio 23.1 H (6-22) Glucose 116 H (70-100) mg/dL Calcium 9.2 (8.4-10.2) mg/dL Magnesium 1.9 (1.6-2.3) mg/dL Total Bilirubin 0.5 (0.2-1.3) mg/dL AST 42 H (14-36) IU/L ALT 35 H (<35) IU/L Alkaline Phosphatase 84 (38-126) U/L Total Creatine Kinase 41 (30-135) U/L Troponin I < 0.012 (0.01-0.034) ng/mL NT-Pro-B Natriuret Pep 32 (<125) pg/mL Total Protein 7.0 (6.3-8.2) g/dL Albumin 4.0 (3.5-5.0) g/dL Globulin 3.0 (1.7-4.1) g/dL Albumin/Globulin Ratio 1.3 (1.0-2.8) Lipase 118 (23-300) U/L Point of Care Testing Test Results Negative Urine Dip Bedside Urine Glucose Negative Bedside Urine Bilirubin - Negative Bedside Urine Ketone - Negative Urine Specific [place] 1.010 Bedside Urine Occult Blood - Negative Bedside Urine pH 8.0 Bedside Urine Protein - Negative Bedside Urine Urobilinogen - Negative Bedside Urine Nitrite - Negative Bedside Urine Leukocytes - Negative Esterase Imaging Data Chest x-ray: Radiologist's Impression: PROCEDURE: XR CHEST 1V INDICATIONS: chest pain TECHNIQUE: One view of the chest was acquired. COMPARISON: [facility], CR, XR CHEST 2V, 04/05/2022, 19:50. FINDINGS: Surgical changes and devices: None. Lungs and pleura: Lungs are clear. No pleural effusions or pneumothorax. Mediastinum: Mediastinal contours appear normal. Heart size is normal. Bones and chest wall: No suspicious bony lesions. Overlying soft tissues appear unremarkable. IMPRESSION: Stable radiographic evaluation of the chest without acute cardiopulmonary abnormalities or focal consolidation. Dictated by: Imer Arita M.D. on 07/20/2024 at 0:04 ECG Data Attestation: I personally reviewed and interpreted this ECG as follows: Prior ECG tracings: available for review Interpretation: Normal sinus rhythm rate 83 MI interval 150 QRS [address]TC [address] changes persistent T-wave inversion noted in lead 3 similar to prior EKGs in 2011 PVC noted today MDM Narrative Medical decision making narrative: MDM CC: Near-syncope Complicating co-morbidities: Prediabetes Data collected from: Patient Medical records reviewed: Previous ED visits for 2021 Differential considered: Vasovagal reaction, cardiac arrhythmia dehydration Exam documented above, pertinent findings include: Awake alert 39-year-old female no focal deficits Lab Test results independently reviewed as above. Pertinent findings: CBC within normal limits CMP no electrolyte abnormality no YIN glucose 116 Troponin negative Independently reviewed EKG as above Sinus rhythm persistent T-wave inversion noted in lead 3 PVC noted Imaging studies independently reviewed: Chest x-ray no acute cardiopulmonary process Treatments: None Re-evaluations: Patient ambulated to the restroom without any difficulty feeling fine no dizziness Discussion: Patient 39-year-old female who presents today with a near syncopal episode. She passed out while at work. She did not. She was not anemic no electrolyte abnormality no dehydration no evidence of infection. She was overall feeling much better. At this time recommend outpatient ZIO patch. Discharge Plan Departure Patient Disposition: Home Clinical Impression: Syncope, vasovagal Instructions: Fainting Activity Restrictions/Additional Instructions: *You have been diagnosed with vasovagal *What to do: At this time increase fluids make sure you are eating regularly. I would talk with your new primary care provider about possible ZIO monitoring *Continue to take medications as directed *Follow up with your primary care provider in 2-3 days or call [phone] *Return to ER if you should have recurrent episode passing out chest pain or any new, worsening or concerning symptoms Prescriptions: No Action bupropion HCl 150 mg tablet extended release 24 hr 150 mg PO QAM Qty: 90 1RF Rx Instructions: Take 1 tab each morning for depression and anxiety aspirin 325 mg tablet 325 mg PO DAILY Referrals: Radha Barone ARNP [Primary Care Provider] - Stand Alone Forms: Patient Portal/API/Survey, Work Release Note
== END 2024-07-20 02:21 | disposition home or self-care (01) ==
PROVIDERS: Emergency Provider Emergency Medicine; PCP Nurse Practitioner
DX: R55 Syncope and collapse (principal); R42 Dizziness and giddiness; R07.9 Chest pain, unspecified
CPT/HCPCS: 36415; 71045; 80053; 81003; 81025; 82550; 83690; 83735; 83880; 84484; 85025; 85610; 85730; 93005; 93010; 99283; 99284

== ENCOUNTER 2024-07-20 18:18 | Emergency (ER) | payer OTHER, SELFPAY ==
[2024-07-20 18:21] VITALS: BP 161/96; PULSE 99; RESP 16; TEMP 36.2; O2SAT 97; BMI 45.4
--- NOTE | 2024-07-20 18:31 | DI.RAD.S_ITS ---
PROCEDURE: XR CHEST 1V INDICATIONS: chest pain TECHNIQUE: One view of the chest was acquired. COMPARISON: [facility], CR, XR CHEST 1V, 07/19/2024, 23:26. FINDINGS: Surgical changes and devices: None. Lungs and pleura: Lungs are clear. No new focal consolidation. No pleural effusions or pneumothorax. Mediastinum: Mediastinal contours appear normal. Heart size is normal. Bones and chest wall: No suspicious bony lesions. Overlying soft tissues appear unremarkable. IMPRESSION: Stable radiographic evaluation of the chest without acute cardiopulmonary abnormalities or focal consolidation. Dictated by: Imer Arita M.D. on 07/20/2024 at 20:10 Approved by: Imer Arita M.D. on 07/20/2024 at 20:11
--- NOTE | 2024-07-20 18:31 | EKG_ITS ---
[address] [address] Test Date: 2024-07-20 Pat Name: Kristy Gutierrez Department: Room: Gender: Female Director Health: MATT CASTILLO : 1985 Requested By: Order Number: [id number] Reading MD: Alberto Goss MD Measurements Intervals [place] Rate: 79 P: 16 OR: 144 QRS: -6 QRSD: 78 T: 0 QT: 362 QTc: 415 Interpretive Statements Sinus rhythm with occasional premature ventricular complexes Minimal voltage criteria for LVH, may be normal variant ( R in aVL ) Electronically Signed On 07-20-2024 20:02:10 PDT by Alberto Goss MD
[2024-07-20] MEDS: ASPIRIN 81 MG CHEW TAB 324 MG PO (18:44)
[2024-07-20 18:55] LABS: Add Manual Diff / Slide Review NO; Basophils Absolute Auto 100 /uL (0-100); Basophils Percent Auto 0.8 % (0-2); Eosinophils Absolute Auto 100 /uL (0-450); Eosinophils Percent Auto 1.3 % (2-4); Hematocrit 38.7 % (36-46); Hemoglobin 12.6 g/dL (12.0-16.0); Lymphocytes Absolute Auto 1500 /uL (1100-4500); Lymphocytes Percent Auto 19.6 % (25-40); Mean Corpuscular HGB Conc 32.5 % (30-36); Mean Corpuscular Hemoglobin 24.6 PG (26-34); Mean Corpuscular Volume 75.6 fL (80-100); Monocytes Absolute Auto 600 /uL (0-900); Monocytes Percent Auto 7.4 % (3-14); Neutrophils Absolute Auto 5400 /uL (1500-7000); Neutrophils Percent Auto 70.9 % (50-75); Platelet Count 342 X10^3/uL (150-400); Red Blood Cell Count 5.12 X10^6/uL (4.0-5.2); Red Cell Distribution Width 15.3 % (11.6-14.8); White Blood Cell Count 7.6 X10^3/uL (4.5-11.0)
[2024-07-20 18:58] LABS: INR 1.1 (0.9-1.3); Prothrombin Time 11.9 SECONDS (9.4-12.5)
[2024-07-20 19:00] LABS: PTT Partial Thromboplastin Tim 29 SECONDS (25.1-36.5)
[2024-07-20 19:02] LABS: Alanine Aminotransferase 36 IU/L (<35); Albumin 3.9 g/dL (3.5-5.0); Albumin Globulin Ratio 1.2 (1.0-2.8); Alkaline Phosphatase 77 U/L (38-126); Aspartate Aminotransferase 30 IU/L (14-36); BUN Creatinine Ratio 16.9 (6-22); Bilirubin Total 1.1 mg/dL (0.2-1.3); Blood Urea Nitrogen 12 mg/dL (7-17); Calcium 9.4 mg/dL (8.4-10.2); Carbon Dioxide 24 mmol/L (22-32); Chloride 105 mmol/L (98-107); Creatine Kinase 38 U/L (30-135); Estimated Glomerular Filt Rate > 60 mL/min (>60); Globulin 3.2 g/dL (1.7-4.1); Glucose 113 mg/dL (70-100); HEMOLYSIS < 15 (0-50); Lipase 77 U/L (23-300); Magnesium 1.8 mg/dL (1.6-2.3); Potassium 3.7 mmol/L (3.4-5.1); Sodium 137 mmol/L (137-145); Total Protein 7.1 g/dL (6.3-8.2)
[2024-07-20 19:13] LABS: NT-proBNP (BNP-Adult 18+) 287 pg/mL (<125); Troponin I < 0.012 ng/mL (0.01-0.034)
[2024-07-20 19:48] VITALS: BP 140/80; PULSE 78; RESP 18; TEMP 36.3; O2SAT 96
[2024-07-21 00:50] VITALS: PULSE 62; RESP 22; O2SAT 94
[2024-07-21 01:00] VITALS: PULSE 60; RESP 19; O2SAT 94
--- NOTE | 2024-07-21 01:00 | PC.NURSE ---
pt was seen here last night for dizziness and near syncope today she was feeling the same so she returned to the ED denies any pain or discomfort was just worried about the dizziness
[2024-07-21 01:01] VITALS: BP 140/70; PULSE 58; RESP 22; O2SAT 97
[2024-07-21 01:30] VITALS: PULSE 48; RESP 17; O2SAT 96
[2024-07-21 01:31] VITALS: BP 121/74; PULSE 60; RESP 17; O2SAT 96
--- NOTE | 2024-07-21 01:48 | ED_ITS ---
HPI - General Adult General Chief complaint: Hypertension Stated complaint: returning pt from last night Time Seen by Provider: 07/21/24 01:20 History of Present Illness HPI narrative: Patient 39-year-old female presenting to day with episode of lightheadedness. I saw and evaluated her last night for the same however last night she was at work and ambulatory when she had a near syncopal episode. She had a full workup last evening recommended Holter monitor discharged home. Today she had the day off from work she slept most of the day she works operations supervisor 2nd shift. Woke up and was sitting when she got lightheaded she has absolutely no chest pain or shortness of breath. She describes her head as being foggy. She was no numbness tingling or weakness. She then feels like she hyperventilated and had an anxiety reaction and now thinks that she has a over reacted. He does have a remote history of a superficial thrombosis but not currently on anticoagulation unclear cause. Related Data Home Medications Medication Instructions Recorded Confirmed aspirin 325 mg tablet 325 mg PO DAILY 03/02/23 03/22/23 Previous Rx's Medication Instructions Recorded bupropion HCl 150 mg 24 hr tablet, 150 mg PO QAM #90 tabs 03/22/23 extended release Allergies Allergy/AdvReac Type Severity Reaction Status Date / Time hydrocodone [HYDROCODONE] Allergy Mild NAUSEA Verified 03/22/23 11:15 Patient History Medical History Depression with anxiety Superficial thrombosis of right lower extremity Family history of clotting disorder Lower extremity edema Hypertension Obesity Viral URI with cough Kidney stone on left side Severe menstrual cramps Heavy menstrual bleeding Inability to conceive, female Irregular menstrual cycle PCOS (polycystic ovarian syndrome) Amenorrhea Back pain GERD (gastroesophageal reflux disease) Anxiety Scoliosis UTI (urinary tract infection) Surgical History History of tonsillectomy Family History Father Diabetes mellitus Mother Diabetes mellitus Brother History of stroke Sister Hx of blood clots Grandmother Hx of stroke associated with blood clotting tendency Social History Smoking Status: Current every day smoker Tobacco: How many years used: 16 quit status: considering quitting alcohol intake: current substance use type: marijuana (vapes) Smoking Status: Current every day smoker tobacco type: cigarettes alcohol intake frequency: 0-2 drinks per day Exam Initial Vital Signs Initial Vital Signs: Vital Signs Temperature 97.2 F L 07/20/24 18:21 Pulse Rate 99 H 07/20/24 18:21 Respiratory Rate 16 07/20/24 18:21 Blood Pressure 161/96 H 07/20/24 18:21 Pulse Oximetry 97 07/20/24 18:21 Oxygen Delivery Method Room Air 07/20/24 18:21 GENERAL: Alert well-appearing 4-year-old female and in no acute distress. HEENT: Head atraumatic,EOMI, pupils reactive, face symmetric, moist mucous membranes CARDIOVASCULAR: Regular rate and rhythm without murmurs, rubs or gallops. RESPIRATORY: Breath sounds equal bilaterally, no wheezes rales or rhonchi. ABDOMEN: Soft, nontender. Normoactive bowel sounds all 4 quadrants. No guarding or rebound. EXTREMITIES: Normal range of motion, no clubbing or edema. Neurovascularly intact NEUROLOGICAL: Alert and oriented x4.Normal gait and speech. Cranial nerves II through XII grossly intact. Machine Engraver strength equal bilaterally ambulatory with steady gait no ataxia SKIN: Warm, dry, no laceration, no petechiae, no rashes or lesions. Scores GCS [place] coma scale eye opening: Spontaneous [place] coma scale verbal response: Orientated [place] coma scale motor response: Obey commands [place] coma scale total score: 15 Course Orders Ordered: Discontinued Medications Aspirin (Aspirin 81 Mg Chew Tab) 324 mg PO NOW ONE Stop: 07/20/24 18:32 Last Admin: 07/20/24 18:44 Dose: 324 mg Documented By: JEFF Vital Signs Vital signs: Vital Signs - 8 hr 07/21/24 00:50 07/21/24 01:00 07/21/24 01:01 Pulse Rate 62 60 58 L Respiratory Rate 22 19 22 Blood Pressure Pulse Oximetry 94 94 97 07/21/24 01:01 07/21/24 01:30 07/21/24 01:31 Pulse Rate 48 L 60 Respiratory Rate 17 17 Blood Pressure 140/70 Pulse Oximetry 96 96 07/21/24 01:31 Pulse Rate Respiratory Rate Blood Pressure 121/74 Pulse Oximetry Medical Decision Making Lab Data 07/20/24 18:42 07/20/24 18:42 Labs: Lab Results 07/20/24 Range/Units 18:42 WBC 7.6 (4.5-11.0) X10^3/uL RBC 5.12 (4.0-5.2) X10^6/uL Hgb 12.6 (12.0-16.0) g/dL Hct 38.7 (36-46) % MCV 75.6 L (80-100) fL MCH 24.6 L (26-34) PG MCHC 32.5 (30-36) % RDW 15.3 H (11.6-14.8) % Plt Count 342 (150-400) X10^3/uL Neut % (Auto) 70.9 (50-75) % Lymph % (Auto) 19.6 L (25-40) % [place] % (Auto) 7.4 (3-14) % Eos % (Auto) 1.3 L (2-4) % Baso % (Auto) 0.8 (0-2) % Neut # (Auto) 5400 (3925-4970) /uL Lymph # (Auto) 1500 (6697-0584) /uL [place] # (Auto) 600 (0-900) /uL Eos # (Auto) 100 (0-450) /uL Baso # (Auto) 100 (0-100) /uL PT 11.9 (9.4-12.5) SECONDS INR 1.1 (0.9-1.3) APTT 29 (25.1-36.5) SECONDS Sodium 137 (137-145) mmol/L Potassium 3.7 (3.4-5.1) mmol/L Chloride 105 (98-107) mmol/L Carbon Dioxide 24 (22-32) mmol/L BUN 12 (7-17) mg/dL Creatinine 0.71 (0.52-1.04) mg/dL Estimated GFR > 60 (>60) mL/min BUN/Creatinine Ratio 16.9 (6-22) Glucose 113 H (70-100) mg/dL Calcium 9.4 (8.4-10.2) mg/dL Magnesium 1.8 (1.6-2.3) mg/dL Total Bilirubin 1.1 (0.2-1.3) mg/dL AST 30 (14-36) IU/L ALT 36 H (<35) IU/L Alkaline Phosphatase 77 (38-126) U/L Total Creatine Kinase 38 (30-135) U/L Troponin I < 0.012 (0.01-0.034) ng/mL NT-Pro-B Natriuret Pep 287 H (<125) pg/mL Total Protein 7.1 (6.3-8.2) g/dL Albumin 3.9 (3.5-5.0) g/dL Globulin 3.2 (1.7-4.1) g/dL Albumin/Globulin Ratio 1.2 (1.0-2.8) Lipase 77 (23-300) U/L Imaging Data Chest x-ray: Radiologist's Impression: PROCEDURE: XR CHEST 1V INDICATIONS: chest pain TECHNIQUE: One view of the chest was acquired. COMPARISON: [facility], , XR CHEST 1V, 07/19/2024, 23:26. FINDINGS: Surgical changes and devices: None. Lungs and pleura: Lungs are clear. No new focal consolidation. No pleural effusions or pneumothorax. Mediastinum: Mediastinal contours appear normal. Heart size is normal. Bones and chest wall: No suspicious bony lesions. Overlying soft tissues appear unremarkable. IMPRESSION: Stable radiographic evaluation of the chest without acute cardiopulmonary abnormalities or focal consolidation. Dictated by: Imer Arita M.D. on 07/20/2024 at 20:10 ECG Data Attestation: I personally reviewed and interpreted this ECG as follows: Prior ECG tracings: available for review Interpretation: Sinus rhythm rate 79 [place] interval 144 QRS 70 QTC 362 PVC noted no acute ischemia MDM Narrative Medical decision making narrative: Patient 39-year-old female presenting today with some lightheadedness. It does not sound like she is dizzy. She was no focal deficits. Exam is benign. She was steady gait she is ambulatory in the ED. Blood work has been reviewed overall reassuring no leukocytosis anemia electrolyte abnormality and negative troponin. Chest x-ray reviewed and negative EKGs reviewed is noted to have a PVC but no evidence of ischemia Patient denies any kind of chest pain palpitations shortness of breath. She was found on a monitor. At this time I strongly recommend that she have outpatient workup including ZIO patch possibly other workup as well. She has been waiting in the ED for 6 hours. She reports that symptoms lasted initially an hour but completely resolved in the waiting room. Patient is found to have PVC on her EKGs she actually had 1 yesterday as well. Possible arrhythmia causing the symptoms for her. Differential diagnosis arrhythmia vertigo ACS electrolyte imbalance anemia thyroid disorder Discharge Plan Departure Patient Disposition: Home Clinical Impression: Dizziness Instructions: DI for High Blood Pressure Activity Restrictions/Additional Instructions: *You have been diagnosed with dizziness *What to do: At this time again blood work and workup in the emergency department overall reassuring. I do recommend that you get a ZIO patch. *Continue to take medications as directed *Follow up with your primary care provider in 2-3 days or call [phone] *Return to ER if you should have passing out weakness significant shortness of breath or any new, worsening or concerning symptoms Prescriptions: No Action bupropion HCl 150 mg tablet extended release 24 hr 150 mg PO QAM Qty: 90 1RF Rx Instructions: Take 1 tab each morning for depression and anxiety aspirin 325 mg tablet 325 mg PO DAILY Referrals: Radha Barone ARNP [Primary Care Provider] - Stand Alone Forms: Patient Portal/API/Survey, Work Release Note
== END 2024-07-21 02:14 | disposition home or self-care (01) ==
PROVIDERS: Emergency Provider Emergency Medicine; PCP Nurse Practitioner
DX: R42 Dizziness and giddiness (principal); R07.9 Chest pain, unspecified
CPT/HCPCS: 71045; 80053; 82550; 83690; 83735; 83880; 84484; 85025; 85610; 85730; 93005; 93010; 99283; 99284

== ENCOUNTER → 2024-08-03 07:58 | Outpatient (CLI) | payer OTHER, SELFPAY | LOC: CAR 07:59 | PROVIDERS: PCP Family Medicine; Referring Provider Family Medicine; Visit Provider Family Medicine | DX: R42 Dizziness and giddiness (principal); R55 Syncope and collapse | CPT/HCPCS: 93246 ==

== ENCOUNTER → 2024-08-11 13:21 | Outpatient (CLI) | payer OTHER, SELFPAY ==
[2024-08-11 14:03] LABS: Add Manual Diff / Slide Review NO; Basophils Absolute Auto 100 /uL (0-100); Basophils Percent Auto 0.7 % (0-2); Eosinophils Absolute Auto 200 /uL (0-450); Eosinophils Percent Auto 1.9 % (2-4); Hematocrit 41.9 % (36-46); Hemoglobin 13.6 g/dL (12.0-16.0); Lymphocytes Absolute Auto 1900 /uL (1100-4500); Mean Corpuscular HGB Conc 32.5 % (30-36); Monocytes Absolute Auto 600 /uL (0-900); Monocytes Percent Auto 5.5 % (3-14); Neutrophils Absolute Auto 7400 /uL (1500-7000); Neutrophils Percent Auto 72.9 % (50-75); Platelet Count 367 X10^3/uL (150-400); Red Blood Cell Count 5.44 X10^6/uL (4.0-5.2); Red Cell Distribution Width 16.1 % (11.6-14.8); White Blood Cell Count 10.1 X10^3/uL (4.5-11.0)
[2024-08-11 14:16] LABS: Hemoglobin A1C% w Est Avg Glu 5.4 % (4.0-6.0)
[2024-08-11 14:26] LABS: Alanine Aminotransferase 37 IU/L (<35); Albumin 4.3 g/dL (3.5-5.0); Albumin Globulin Ratio 1.5 (1.0-2.8); Alkaline Phosphatase 86 U/L (38-126); Aspartate Aminotransferase 34 IU/L (14-36); BUN Creatinine Ratio 14.9 (6-22); Bilirubin Total 0.9 mg/dL (0.2-1.3); Blood Urea Nitrogen 13 mg/dL (7-17); Calcium 9.6 mg/dL (8.4-10.2); Carbon Dioxide 23 mmol/L (22-32); Chloride 106 mmol/L (98-107); Cholesterol 232 mg/dL (140-199); Estimated Glomerular Filt Rate > 60 mL/min (>60); Globulin 2.9 g/dL (1.7-4.1); Glucose 95 mg/dL (70-100); HDL Cholesterol 50 mg/dL (40-60); HEMOLYSIS < 15 (0-50); LDL Cholesterol Calculated 117 mg/dL (<100); Potassium 4.6 mmol/L (3.4-5.1); Sodium 137 mmol/L (137-145); Total Protein 7.2 g/dL (6.3-8.2); Triglycerides 323 mg/dL (35-150)
[2024-08-11 14:55] LABS: TSH w/ Reflex to FT4 1.71 uIU/mL (0.47-4.68)
== END ==
PROVIDERS: PCP Family Medicine; Referring Provider Family Medicine; Visit Provider Family Medicine
DX: R55 Syncope and collapse (principal); R73.03 Prediabetes; R74.8 Abnormal levels of other serum enzymes; I10 Essential (primary) hypertension; E78.2 Mixed hyperlipidemia
CPT/HCPCS: 36415; 80053; 80061; 83036; 84443; 85025

== ENCOUNTER → 2024-09-21 14:51 | Outpatient (CLI) | payer OTHER, SELFPAY ==
[2024-09-21 15:42] LABS: HEMOLYSIS < 15 (0-50); Iron 57 ug/dL (37-170)
[2024-09-21 15:52] LABS: Percent Iron Saturation 12 % (15-50); Total Iron Binding Capacity 460 ug/dL (265-497); Transferrin 389 mg/dL (206-381)
[2024-09-21 16:00] LABS: Follicle Stimulating Hormone 5.29 mIU/mL; Luteinizing Hormone 8.72 mIU/mL; Prolactin 13.1 ng/mL (3.0-18.6)
[2024-09-21 16:17] LABS: Ferritin 5 ng/mL (6-137)
== END ==
PROVIDERS: PCP Family Medicine; Referring Provider Family Medicine; Visit Provider Family Medicine
DX: N91.2 Amenorrhea, unspecified (principal); R53.83 Other fatigue; N93.9 Abnormal uterine and vaginal bleeding, unspecified; R55 Syncope and collapse
CPT/HCPCS: 36415; 82728; 83001; 83002; 83540; 83550; 84146

== ENCOUNTER 2024-09-22 03:58 | Emergency (ER) | payer OTHER, SELFPAY ==
[2024-09-22 04:08] VITALS: BP 132/64; PULSE 79; RESP 22; TEMP 36.5; O2SAT 95; BMI 45.2
[2024-09-22 04:09] VITALS: PULSE 73; O2SAT 96
--- NOTE | 2024-09-22 04:12 | DI.CT.S_ITS ---
PROCEDURE: CT KIDNEY URETER BLADDER (KUB) INDICATIONS: Stone TECHNIQUE: Axial sections were acquired from the lung bases to the pubic symphysis. Coronal and sagittal reformats were performed. For radiation dose reduction, the following was used: automated exposure control, adjustment of mA and/or kV according to patient size. COMPARISON: [facility], CT, CT KIDNEY URETER BLADDER (KUB), 12/27/2020, 18:55. FINDINGS: Image quality: Diagnostic. Lower Chest: No significant findings. URINARY: Right Kidney: No stones or hydronephrosis. Right Ureter: No hydroureter. Left Kidney: Moderate hydronephrosis. Kidney edema. No parenchymal stones. Left Ureter: A 9 mm stone with a Hounsfield measurement of 1218 obstructs the left ureter at the UPJ resulting in moderate left hydronephrosis. Bladder: Normal wall thickness. No stones. ABDOMEN: Liver: No contour-deforming solid mass. Gallbladder: No radiopaque gallstones or wall thickening. Biliary ducts: No biliary dilation. Pancreas: No ductal dilation. Spleen: Size is within normal limits. Adrenal Glands: No adrenal nodules. Stomach and Bowel: Normal colonic caliber, without significant wall thickening. Peritoneum: No abnormal intraperitoneal fluid. No free air. Ventral Wall: A small caliber umbilical hernia results in incarcerated inflamed fat. The hernia defect is approximately 1.6 cm. Reference images 89 through 97 of axial series 2. Abdominal Nodes: No enlarged retroperitoneal or mesenteric lymph nodes. Vessels: Aorta and inferior vena cava are normal in size. PELVIS: Pelvic Organs: Unremarkable. Pelvic Nodes: Unremarkable. Miscellaneous: No inguinal hernias are seen. Bones: Unremarkable. IMPRESSION: 1. A 9 mm stone obstructs the left kidney at the UPJ resulting in moderate hydronephrosis. Hounsfield measurements as described above. 2. 1.6 cm diameter umbilical region abdominal wall defect with incarcerated fat containing hernia. The fat is inflamed. Comment: Preliminary interpretation provided by [facility]. Comment: The incarcerated fat containing umbilical hernia was discussed with Dr. Xiao on 09/22/2024 at 0800 hours. Dictated by: Lorne Mcclendon M.D. on 09/22/2024 at 7:53 Approved by: Lorne Mcclendon M.D. on 09/22/2024 at 8:04
--- NOTE | 2024-09-22 04:13 | ED_ITS ---
HPI - Female Genitourinary General Chief complaint: Urogenital-Female Stated complaint: Sudden onset of left side abdominal pain Time Seen by Provider: 09/22/24 04:01 Source: patient Mode of arrival: Ambulatory History of Present Illness HPI Narrative: Patient is a 39-year-old female with a history of abnormal uterine bleeding, previous syncope, anxiety, hyperlipidemia, hypertension, and polycystic ovary syndrome (PCOS) who presents with acute onset of severe left flank and abdominal pain that awoke her from sleep. She reports the pain is worsening and radiating, and is associated with nausea and chills (feeling cold). She has a prior history of kidney stones, previously managed medically with medications such as Flomax, but has not required lithotripsy or other procedures. She denies dysuria or vaginal discharge. She attempted Tylenol and topical [place] at home without relief. She is scheduled for a cardiology appointment and echocardiogram later this morning for evaluation of prior syncope. Review of systems is positive for left flank and abdominal pain, nausea, and chills; negative for dysuria and vaginal discharge. Medications: Citalopram, Tylenol (as needed) Allergies: Vicodin (causes nausea) Past Medical History: Abnormal uterine bleeding, previous syncope, anxiety, hyperlipidemia, hypertension, PCOS, history of nephrolithiasis Surgical History: Not mentioned Related Data Home Medications Medication Instructions Recorded Confirmed medroxyprogesterone 2.5 mg tablet 2.5 mg PO DAILY 08/21/24 09/07/24 Previous Rx's Medication Instructions Recorded citalopram 10 mg tablet 10 mg PO DAILY #30 tabs 08/21/24 hydroxyzine HCl 25 mg tablet 25 mg PO BID PRN anxiety #60 tabs 08/21/24 ondansetron 4 mg disintegrating 4 mg PO Q8H #14 tabs 09/22/24 tablet oxycodone 5 mg capsule 5 mg PO Q6H PRN pain #10 caps 09/22/24 tamsulosin 0.4 mg capsule (Flomax) 0.4 mg PO DAILY #30 caps 09/22/24 Allergies Allergy/AdvReac Type Severity Reaction Status Date / Time hydrocodone [HYDROCODONE] Allergy Mild NAUSEA Verified 09/07/24 16:09 Review of Systems Review of Systems ROS Unobtainable: All systems reviewed & are unremarkable except as noted in HPI and below Patient History Medical History (Updated 09/22/24 @ 05:13 by Imer Hannah MD) Syncope Depression with anxiety Superficial thrombosis of right lower extremity Family history of clotting disorder Lower extremity edema Hypertension Obesity Viral URI with cough Kidney stone on left side Severe menstrual cramps Heavy menstrual bleeding Inability to conceive, female Irregular menstrual cycle PCOS (polycystic ovarian syndrome) Amenorrhea Back pain GERD (gastroesophageal reflux disease) Anxiety Scoliosis UTI (urinary tract infection) Surgical History History of tonsillectomy Family History Father Diabetes mellitus Mother Diabetes mellitus Brother History of stroke Sister Hx of blood clots Grandmother Hx of stroke associated with blood clotting tendency tobacco type: cigarettes Exam Narrative Exam Narrative: General: Well appearing, well nourished, in no distress. Skin: Good turgor, no rash, unusual bruising or prominent lesions Head: Normocephalic, atraumatic HEENT: Conjunctiva clear, EOM intact, PERRL, Mucous membranes moist. Neck: Supple, normal ROM Heart: Regular rate and rhythm, no murmur or gallop or rubs Lungs: Clear to auscultation. No rales rhonchi or wheezes. Abdomen: Left flank and abdominal tenderness reported by patient, no mention of mass or hernia. Back: Spine normal without deformity or tenderness, left-sided flank pain, CVA tenderness no overlying rash Extremities: No deformities, edema. peripheral pulses intact Neurologic: CN 2-12 normal. Normal sensation and motor exam. Psychiatric: Oriented X3. normal mood and affect. Initial Vital Signs Initial Vital Signs: Vital Signs Temperature 97.7 F 09/22/24 04:08 Pulse Rate 79 09/22/24 04:08 Respiratory Rate 22 09/22/24 04:08 Blood Pressure 132/64 09/22/24 04:08 Pulse Oximetry 95 09/22/24 04:08 Oxygen Delivery Method Room Air 09/22/24 04:08 Course Orders Ordered: ED Orders 09/22/24 04:10 Urine Microscopic Stat 09/22/24 04:12 CT kidney ureter bladder (KUB) Stat 09/22/24 04:20 CBC Auto Diff [Complete Blood Count AUTO DIFF] Stat CMP [Comprehensive Metabolic Panel] Stat Discontinued Medications Ketorolac Tromethamine (Ketorolac 30 Mg/Ml Vial) 15 mg IV NOW ONE Stop: 09/22/24 04:15 Last Admin: 09/22/24 04:19 Dose: 15 mg Vital Signs Vital signs: Vital Signs - 8 hr 09/22/24 04:08 09/22/24 04:09 09/22/24 04:26 Temperature 97.7 F Pulse Rate 79 73 83 Respiratory Rate 22 22 Blood Pressure 132/64 Pulse Oximetry 95 96 95 Oxygen Delivery Method Room Air Room Air 09/22/24 04:26 Temperature Pulse Rate Respiratory Rate Blood Pressure 138/80 Pulse Oximetry Oxygen Delivery Method MDM - Female Genitourinary Lab Data Lab results narrative: Reviewed patient's labs which are fortunately reassuring patient has no significant white count, anemia, thrombocytopenia urine does not show signs of infection she does not have significant electrolyte abnormalities. 09/22/24 04:20 09/22/24 04:20 Labs: Lab Results 09/22/24 09/22/24 Range/Units 04:10 04:20 WBC 8.7 (4.5-11.0) X10^3/uL RBC 4.85 (4.0-5.2) X10^6/uL Hgb 12.8 (12.0-16.0) g/dL Hct 38.0 (36-46) % MCV 78.2 L (80-100) fL MCH 26.4 (26-34) PG MCHC 33.8 (30-36) % RDW 18.8 H (11.6-14.8) % Plt Count 328 (150-400) X10^3/uL Neut % (Auto) 61.4 (50-75) % Lymph % (Auto) 27.3 (25-40) % [place] % (Auto) 8.4 (3-14) % Eos % (Auto) 1.9 L (2-4) % Baso % (Auto) 1.0 (0-2) % Neut # (Auto) 5300 (3330-3297) /uL Lymph # (Auto) 2400 (4269-9263) /uL [place] # (Auto) 700 (0-900) /uL Eos # (Auto) 200 (0-450) /uL Baso # (Auto) 100 (0-100) /uL Sodium 138 (137-145) mmol/L Potassium 4.0 (3.4-5.1) mmol/L Chloride 106 (98-107) mmol/L Carbon Dioxide 21 L (22-32) mmol/L BUN 13 (7-17) mg/dL Creatinine 0.89 (0.52-1.04) mg/dL Estimated GFR > 60 (>60) mL/min BUN/Creatinine Ratio 14.6 (6-22) Glucose 111 H (70-99) mg/dL Calcium 8.8 (8.4-10.2) mg/dL Total Bilirubin 0.4 (0.2-1.3) mg/dL AST 30 (14-36) IU/L ALT 33 (<35) IU/L Alkaline Phosphatase 90 (38-126) U/L Total Protein 7.1 (6.3-8.2) g/dL Albumin 4.2 (3.5-5.0) g/dL Globulin 2.9 (1.7-4.1) g/dL Albumin/Globulin Ratio 1.4 (1.0-2.8) Urine RBC 1-5/hpf (0-5/HPF) Urine WBC None seen (0-5/HPF) Ur Squamous Epith Cells 0-1 /hpf (0-5/HPF) Urine Bacteria None seen (None) Ur Culture Indicated? Cult not indicated Vol Urine Centrifuged 10ml (spun) Point of Care Testing Test Results Negative Urine Dip Bedside Urine Glucose Negative Bedside Urine Bilirubin - Negative Bedside Urine Ketone - Negative Urine Specific [place] 1.025 Bedside Urine Occult Blood + Bedside Urine pH 6 Bedside Urine Protein - Negative Bedside Urine Urobilinogen - Negative Bedside Urine Nitrite - Negative Bedside Urine Leukocytes - Negative Esterase Imaging Data CT scan - abdomen/pelvis: My Impression: ICA left-sided stone in the ureter with likely occlusion and hydronephrosis measured 9.2 on my measurement Radiologist's Impression: Radiology report calls for an 8 mm stone causing hydroureteronephrosis on the left side MDM Narrative Medical decision making narrative: INITIAL EVALUATION AND PLAN: - Suspected nephrolithiasis - Plan: - Laboratory studies - CT scan of abdomen/pelvis to evaluate for nephrolithiasis - Consider NSAIDs or Toradol for pain management - Monitor for need for further urologic intervention Differential Diagnoses: Nephrolithiasis, Pyelonephritis, Abdominal aortic aneurysm rupture, Ovarian torsion, Renal infarction, Ureteral obstruction Complexity of Problems Addressed: 1. Acute Illness with Systemic Symptoms: The patient presents with acute onset of severe left flank and abdominal pain associated with nausea and chills, which is suspected to be nephrolithiasis. This condition involves systemic symptoms and requires imaging and laboratory studies for diagnosis, as well as pain management and monitoring for potential urologic intervention. The patient's history of nephrolithiasis and current symptoms suggest an acute illness with systemic symptoms, increasing the complexity of medical decision-making. 2. External Information Sources: The patient's history of nephrolithiasis and current symptoms were corroborated by her prior medical records and her report of previous management with medications such as Flomax. 3. Historians: The patient herself provided detailed information regarding her symptoms, history of nephrolithiasis, and prior intolerance to Vicodin, which guided the diagnostic and therapeutic approach. -case was discussed with on-call [facility] urologist, fortunately patient's creatinine is within normal limits there is no signs of any infection in her urine and she will not need emergent transfer to [facility] for stent or lithotripsy at this time. Urologist does believe the patient will likely need lithotripsy at some point given the size of stone. They will work to get her into their stone clinic as soon as possible, additionally I have given her the follow up information for scheduled Urology group, she was given strict return precautions for fevers, chills, worsening flank pain, burning urine sensation presyncopal symptoms or intractable pain. Lower suspicion for alternative diagnoses such as AAA rupture, ovarian torsion at this time given clear left-sided stone Discharge Plan Departure Patient Disposition: Home Clinical Impression: Left nephrolithiasis, Ureterolithiasis Instructions: DI for Kidney Stones Activity Restrictions/Additional Instructions: You were seen in the emergency department found to have an 8 mm stone in the left side, unfortunately this is unlikely to pass on its own and you will need to see a urologist as soon as possible for potential lithotripsy or stent procedure. This may be done at whatever location conceive 1st, I discussed her case with the [facility] team who will try to fit you into their schedule but they recommended you consider alternative options such as the [place] u[facility] group as well and take whatever appointment is able to see you soon. If you have fevers, chills decreased urine output or intractable pain please return to the emergency department as this may be a sign that your condition is worsening and you need to return to the emergency department. [facility], [address] , [place] [address] Prescriptions: New tamsulosin [Flomax] 0.4 mg capsule 0.4 mg PO DAILY Qty: 30 0RF oxycodone 5 mg capsule 5 mg PO Q6H PRN (Reason: pain) Qty: 10 0RF ondansetron 4 mg tablet,disintegrating 4 mg PO Q8H Qty: 14 0RF No Action medroxyprogesterone 2.5 mg tablet 2.5 mg PO DAILY citalopram 10 mg tablet 10 mg PO DAILY Qty: 30 2RF hydroxyzine HCl 25 mg tablet 25 mg PO BID PRN (Reason: anxiety) Qty: 60 0RF Referrals: Dominic Shah DO [Non-Staff] - Pia Huang MD [Primary Care Provider] - Stand Alone Forms: Patient Portal/API/Survey
[2024-09-22] MEDS: KETOROLAC 30 MG/ML VIAL 15 MG IV (04:19)
--- NOTE | 2024-09-22 04:20 | PC.NURSE ---
Pt ambulatory to imaging with security alarm technician
[2024-09-22 04:26] VITALS: BP 138/80; PULSE 83; RESP 22; O2SAT 95
[2024-09-22 04:29] LABS: RBC Urine 1-5/HPF (0-5/HPF); Urine Volume 10mL (spun)
[2024-09-22 04:30] LABS: Bacteria Urine None Seen; Culture Indicated Urine Cult Not Indicated; Squamous Epithelial Cell Urine 0-1 /HPF (0-5/HPF); WBC Urine None Seen (0-5/HPF)
[2024-09-22 04:31] VITALS: BP 115/74; PULSE 71; RESP 14; O2SAT 94
[2024-09-22 04:31] LABS: Add Manual Diff / Slide Review NO; Basophils Absolute Auto 100 /uL (0-100); Eosinophils Absolute Auto 200 /uL (0-450); Eosinophils Percent Auto 1.9 % (2-4); Hemoglobin 12.8 g/dL (12.0-16.0); Lymphocytes Absolute Auto 2400 /uL (1100-4500); Lymphocytes Percent Auto 27.3 % (25-40); Mean Corpuscular HGB Conc 33.8 % (30-36); Mean Corpuscular Hemoglobin 26.4 PG (26-34); Mean Corpuscular Volume 78.2 fL (80-100); Monocytes Absolute Auto 700 /uL (0-900); Monocytes Percent Auto 8.4 % (3-14); Neutrophils Absolute Auto 5300 /uL (1500-7000); Neutrophils Percent Auto 61.4 % (50-75); Platelet Count 328 X10^3/uL (150-400); Red Blood Cell Count 4.85 X10^6/uL (4.0-5.2); Red Cell Distribution Width 18.8 % (11.6-14.8); White Blood Cell Count 8.7 X10^3/uL (4.5-11.0)
[2024-09-22 04:42] LABS: Alanine Aminotransferase 33 IU/L (<35); Albumin 4.2 g/dL (3.5-5.0); Albumin Globulin Ratio 1.4 (1.0-2.8); Alkaline Phosphatase 90 U/L (38-126); Aspartate Aminotransferase 30 IU/L (14-36); BUN Creatinine Ratio 14.6 (6-22); Bilirubin Total 0.4 mg/dL (0.2-1.3); Blood Urea Nitrogen 13 mg/dL (7-17); Calcium 8.8 mg/dL (8.4-10.2); Carbon Dioxide 21 mmol/L (22-32); Chloride 106 mmol/L (98-107); Estimated Glomerular Filt Rate > 60 mL/min (>60); Globulin 2.9 g/dL (1.7-4.1); Glucose 111 mg/dL (70-99); HEMOLYSIS < 15 (0-50); Sodium 138 mmol/L (137-145); Total Protein 7.1 g/dL (6.3-8.2)
[2024-09-22 05:00] VITALS: BP 122/82; PULSE 76; RESP 14; O2SAT 94
== END 2024-09-22 05:26 | disposition home or self-care (01) ==
PROVIDERS: Emergency Provider Emergency Medicine; PCP Family Medicine
DX: N20.0 Calculus of kidney (principal); N20.1 Calculus of ureter; R42 Dizziness and giddiness; R55 Syncope and collapse
CPT/HCPCS: 36415; 74176; 80053; 81003; 81015; 81025; 85025; 93306; 96374; 99284; J1885

== ENCOUNTER → 2024-09-22 07:19 | Outpatient (CLI) | payer OTHER, SELFPAY ==
--- NOTE | 2024-09-22 07:20 | DI.ECHO.S_ITS ---
[facility] : : [address] : : [place] : : [id number] : : Phone: [phone] Echocardiogram Report + + :Name: DYAN RAMON Study Date: 09/22/2024 Height: 67 in : :[facility] ReadingLocation: Weight: 283 lb : : Gender: Female BSA: 2.3 m2 : :: 1985 Age: 39 yrs BP: 140/96 mmHg: :Reason For Study: DIZZINESS, SYNCOPE AND COLLAPSE : :Ordering Physician: KUMAR, : :ARDEN Trammell Performed By: Flory Fuller : :Referring: ARDEN HEATH : + + Interpretation Summary The study quality was technically difficult. The ejection fraction is estimated to be 55-60%. There are no obvious focal wall motion abnormalities noted but poor endocardial definition reduces the sensitivity for the detection of such. There is no pericardial effusion. There is no significant valvular heart disease. Procedure: A two-dimensional transthoracic echocardiogram with color flow and Doppler was performed. The study quality was technically difficult. Patient was very tender in apical window. There is no prior echocardiogram noted for this patient. The patient was in sinus rhythm with heart rates between 67-86 bpm during the exam. Left Ventricle: The left ventricle is normal in size. There is normal left ventricular wall thickness. The ejection fraction is estimated to be 55-60%. There are no obvious focal wall motion abnormalities noted but poor endocardial definition reduces the sensitivity for the detection of such. Right Ventricle: The right ventricle is normal in size and function. Atria: The left atrium is mildly dilated. Right atrial size is normal. There is no Doppler evidence for an interatrial shunt. Mitral Valve: The mitral valve leaflets appear to open well. There is trace mitral regurgitation. Aortic Valve: The aortic valve opens well. There is no aortic valve stenosis. No aortic regurgitation is present. Tricuspid Valve: The tricuspid valve leaflets are thin and pliable. There is trace tricuspid regurgitation. Pulmonary artery pressures cannot be estimated because of the lack of a measurable TR jet velocity. Pulmonic Valve: The pulmonic valve is not well seen, but is grossly normal. There is no pulmonic valvular regurgitation. Great Vessels: The aortic root is normal size. The dimensions of the ascending aorta are normal. The IVC is of normal diameter and collapses greater than 50% with a sniff. This suggests a low right atrial pressure of 3 mm Hg. Pericardium/ Pleura There is no pericardial effusion. There is no pleural effusion. MMode/2D Measurements & Calculations LVIDd: 5.1 cm LVOT diam: 2.1 cm LVIDs: 3.1 cm Ao root diam: 3.3 cm FS: 38.5 % asc Aorta Diam: 3.0 cm IVSd: 1.1 cm Ao Arch Diam (Prox Trans): 3.0 cm LVPWd: 0.94 cm LV moreno. diameter/BSA (cm/m^2): 2.2 LV sys. diameter/BSA (cm/m^2): 1.3 LA A2 area: 23.5 cm2 RA long axis: 5.5 cm LA A4 area: 25.6 cm2 RA area: 16.5 cm2 LA length (vol): 6.3 cm RA vol: 42.1 ml LA vol: 81.4 ml RA : 17.9 ml/m2 LA vol index: 34.7 ml/m2 IVC diam: 1.4 cm RVD1 (basal): 3.3 cm RVD2 (mid): 3.1 cm TAPSE: 2.3 cm Doppler Measurements & Calculations Ao V2 max: 153.1 cm/sec LVOT Max Vern: 88.0 cm/sec Ao V2 mean: 99.2 cm/sec LV V1 max P.1 mmHg Ao max P.4 mmHg LV V1 VTI: 18.6 cm Ao mean P.6 mmHg SAMREEN(I,D): 2.2 cm2 Ao V2 VTI: 30.4 cm SAMREEN(V,D): 2.1 cm2 sev ratio: 0.61 SAMREEN indexed to BSA (cm^2/m^2): 0.93 MV E max vern: 64.1 cm/sec PA V2 max: 108.7 cm/sec MV A max vern: 75.0 cm/sec PA V2 mean: 78.8 cm/sec MV E/A: 0.85 PA mean P.7 mmHg Med Peak E' Vern: 12.5 cm/sec PA pr(Accel): 26.8 mmHg E/E' med: 5.1 Lat Peak E' Vern: 8.2 cm/sec E/E' lat: 7.8 E/e' average: 6.5 MV dec time: 0.21 sec SV(LVOT): 66.3 ml Reading Physician:10:47 AM
== END ==
PROVIDERS: PCP Family Medicine; Referring Provider Family Medicine; Visit Provider Family Medicine
DX: R42 Dizziness and giddiness (principal); R55 Syncope and collapse
CPT/HCPCS: 93306

== ENCOUNTER → 2024-09-25 15:21 | Outpatient (CLI) | payer OTHER, SELFPAY ==
--- NOTE | 2024-09-25 15:21 | DI.US.S_ITS ---
PROCEDURE: US PELVIC COMPLETE INDICATIONS: ABNORMAL UTERINE BLEEDING TECHNIQUE: Real-time scanning was performed of the pelvic organs, with image documentation. Additional endovaginal scanning was necessary due to incomplete visualization of the adnexal and endometrial structures by transabdominal scanning. COMPARISON: [facility], US, US PELVIC COMPLETE, 10/05/2019, 12:47. FINDINGS: Uterus: Uterus is anteverted and normal in size at 8.7 x 6.8 x 5.3 cm. The myometrium is heterogeneous. The endometrium measures 6 mm combined thickness. There is fan like shadowing/Venetian blind appearance of the uterus without definite focal intrauterine lesion or abnormal thickening of the endometrium. Of note, limited visualization of the mid and fundal portions of the uterus secondary to inability for patient to tolerate pressure from the ultrasound transducer. Ovaries: The right ovary measures 3.3 x 2.4 x 2.4 cm, with a calculated ovarian volume of 10 cc. The left ovary measures 3.2 x 2.1 x 2.1 cm, with a calculated ovarian volume of 7.3 cc. The ovaries have a normal sonographic appearance. Greater than 12 follicles noted in the bilateral ovaries. No adnexal masses are seen. Other: No pathologic free abdominal or pelvic fluid. IMPRESSION: 1. Heterogeneous uterus without definite endometrial thickening or focal intrauterine lesions with fan-like shadowing/[place]etian blind appearance of the uterus may represent adenomyosis versus uterine fibroids. The mid and fundal portions of the uterus were not well imaged on this exam. Consider repeat pelvic ultrasound versus further characterization with contrast enhanced pelvic MRI using gynecologic protocol. 2. Greater than 12 follicles noted in the bilateral ovaries. Findings meet the [place] definition of polycystic ovaries. In the absence of ovulatory dysfunction or clinically/biochemically diagnosed hyperandrogenism, findings are non specific and do not indicate the presence of polycystic ovarian syndrome. We strive to produce accurate, complete, and clear reports of imaging services. To assist us in improving patient care, this report was composed using standard report templates and voice recognition software. Therefore, it may contain abnormal punctuation, insertions and/or omissions. Occasional wrong-word or sound-alike substitutions may occur. Though we review the report and make efforts to correct it, we do recommend that the report be read carefully in proper context to recognize any text inaccuracies. Dictated by: Imer Arita M.D. on 09/26/2024 at 9:57 Approved by: Imer Arita M.D. on 09/26/2024 at 10:09
== END ==
PROVIDERS: PCP Family Medicine; Referring Provider Family Medicine; Visit Provider Family Medicine
DX: N93.9 Abnormal uterine and vaginal bleeding, unspecified (principal)
CPT/HCPCS: 76830; 76856

== ENCOUNTER → 2024-10-05 15:07 | Outpatient (CLI) | payer OTHER, SELFPAY ==
--- NOTE | 2024-10-05 15:10 | DI.NM.S_ITS ---
PROCEDURE: NM EXERCISE TREADMILL NON NUC COMPARISON: None. INDICATIONS: SVT, supraventricular tachycardia FINDINGS: Patient exercised per the standard Roger protocol. Total exercise time was 4 minutes and 51 seconds. Test was terminated secondary to fatigue. Maximal heart rate attained is 162 bpm which is 89% of max heart rate. Maximum blood pressure was 220/[place] [address]. ASIM +45%. 7.0 METS. No ischemic changes noted. Occasional PVCs noted during recovery. Normal heart rate with hypertensive response to exercise. No chest pains voiced. IMPRESSION: 1. Negative exercise treadmill stress test for ischemia. 2. Severely compromised exercise tolerance. 3. Hypertensive response to exercise. Dictated by: Sohail Foley M.D. on 10/05/2024 at 16:18 Approved by: Sohail Foley M.D. on 10/05/2024 at 16:21
== END ==
LOC: NUCM 15:08
PROVIDERS: PCP Family Medicine; Referring Provider Family Medicine; Visit Provider Family Medicine
DX: I47.10 Supraventricular tachycardia, unspecified (principal)
CPT/HCPCS: 93017